=== PATIENT | female | born 1945 | race Caucasian/White ===

== ENCOUNTER 2018-06-28 09:02 | Day surgery (SDC) | payer MEDICARE, BC ==
[~2018-06-28] VITALS: Ht 162.6 cm; Wt 70.9 kg
[~2018-06-28 09:02] MED LIST: Abilify5 MG PO; CALCA400CH; CHOL10002 PO; CYAN500; DOXA1 PO; ESOM20 PO; HORIZANT600 MG PO; Ipratropium Bro15 ML; LEVO-T75 MCG PO; Mirapex0.25 MG; NEBI10 PO; Nitrostat0.4 MG; PRENATAL VITAM1 EAC2 PO; PROZAC20 MG PO; QSYMIA 15 MG-91 EACH PO
== END 2018-06-28 11:41 | disposition home or self-care (01) ==
LOC: ORSCSDS 09:02
PROVIDERS: Internal Medicine Gastroenterology
PROC: 0DJD8ZZ Inspection of Lower Intestinal Tract, Via Natural or Artificial Opening Endoscopic (ICD-10-PCS; principal; 2018-06-28 10:30)
DX: Z12.11 Encounter for screening for malignant neoplasm of colon (principal); Z86.010 Personal history of colon polyps; Z83.71 Family history of colonic polyps; Z98.84 Bariatric surgery status; I10 Essential (primary) hypertension; G47.30 Sleep apnea, unspecified; Z79.899 Other long term (current) drug therapy
CPT/HCPCS: J7120

== ENCOUNTER 2019-02-15 20:06 | Inpatient (IN) | payer MEDICARE, BC ==
[~2019-02-15] VITALS: Ht 160 cm; Wt 77.1 kg
[~2019-02-15 20:06] MED LIST changes: -Mirapex0.25 MG; +Mirapex0.25 MG PO
[2019-02-15 21:02] LABS: BASOPHILS ABSOLUTE AUTO 0.15 K/mm3 (0.00-0.23); BASOPHILS PERCENT AUTO 3 % (0-2); EOSINOPHILS ABSOLUTE AUTO 0.14 K/mm3 (0.00-0.68); EOSINOPHILS PERCENT AUTO 3 % (0-6); Hematocrit 39.1 % (33.0-51.0); Hemoglobin 12.2 g/dL (11.5-16.0); IMMATURE GRAN ABSOLUTE AUTO 0.02 K/mm3 (0.00-0.10); IMMATURE GRAN PERCENT AUTO 0 % (0-1); LYMPHOCYTES ABSOLUTE AUTO 1.05 K/mm3 (0.84-5.20); LYMPHOCYTES PERCENT AUTO 19 % (21-46); MONOCYTES ABSOLUTE AUTO 0.56 K/mm3 (0.16-1.47); MONOCYTES PERCENT AUTO 10 % (4-13); Mean Corpuscular HGB 27.7 pg (26.0-34.0); Mean Corpuscular HGB Conc 31.2 g/dL (31.5-36.5); Mean Corpuscular Volume 89 fL (80-100); Mean Platelet Volume 9.5 fL (9.1-12.4); NEUTROPHILS PERCENT AUTO 65 % (41-73); Platelet Count 258 K/mm3 (150-400); RDW Coefficient Variation 20.5 % (11.7-14.2); RDW Standard Deviation 66.2 fL (35.1-46.3); Red Blood Cell Count 4.41 M/mm3 (3.80-5.20); White Blood Cell Count 5.42 K/mm3 (4.00-11.30)
[2019-02-15 21:16] LABS: D-Dimer, Quantitative 2.27 mg/L FEU (0.00-0.52); International Normalized Ratio 0.89; Prothrombin Time Results 9.5 Sec (9.7-11.5)
[2019-02-15 21:25] LABS: Troponin I 0.065 ng/mL (0.000-0.040)
[2019-02-15 21:27] LABS: Alanine Aminotransfer (ALT/SGP 106 U/L (12-78); Albumin, Blood 3.4 g/dL (3.4-5.0); Albumin/Globulin Ratio 1.2 (0.8-1.8); Alk Phos 139 U/L (50-136); Anion Gap 10 mmol/L (6-16); Aspartate Aminotrans (AST/SGOT 189 U/L (12-37); Bilirubin, Total 0.4 mg/dL (0.1-1.0); Blood Urea Nitrogen 5 mg/dL (8-24); Bun/Creatinine Ratio 8.1 (12.0-20.0); CO2, Blood 23 mmol/L (21-32); Calcium, Blood 8.6 mg/dL (8.5-10.1); Chloride, Blood 105 mmol/L (98-108); Creatinine, Blood 0.62 mg/dL (0.40-1.00); Globulin, Blood 2.9 g/dL (2.2-4.0); Glomerular Filtration Rate >60 (60-); Glucose, Blood 74 mg/dL (70-99); Potassium, Blood 4.1 mmol/L (3.5-5.5); Sodium, Blood 138 mmol/L (136-145); Total Protein, Blood 6.3 g/dL (6.4-8.2)
--- NOTE | 2019-02-16 00:05 | NUR ---
per results from Dr. Osorio (night radiology service) CT pulmonary scan showed small bilateral pulmonary emboli. night hospitalist informed. awaiting orders
[2019-02-16 04:35] LABS: Hemoglobin 11.2 g/dL (11.5-16.0); Mean Corpuscular HGB 28.1 pg (26.0-34.0); Mean Corpuscular HGB Conc 31.1 g/dL (31.5-36.5); Mean Corpuscular Volume 91 fL (80-100); Mean Platelet Volume 9.4 fL (9.1-12.4); Platelet Count 226 K/mm3 (150-400); RDW Coefficient Variation 20.7 % (11.7-14.2); RDW Standard Deviation 68.7 fL (35.1-46.3); Red Blood Cell Count 3.98 M/mm3 (3.80-5.20); White Blood Cell Count 5.61 K/mm3 (4.00-11.30)
[2019-02-16 04:52] LABS: Alanine Aminotransfer (ALT/SGP 85 U/L (12-78); Albumin/Globulin Ratio 1.1 (0.8-1.8); Alk Phos 132 U/L (50-136); Anion Gap 9 mmol/L (6-16); Aspartate Aminotrans (AST/SGOT 141 U/L (12-37); Bilirubin, Total 0.5 mg/dL (0.1-1.0); Blood Urea Nitrogen 8 mg/dL (8-24); Bun/Creatinine Ratio 11.9 (12.0-20.0); CO2, Blood 23 mmol/L (21-32); Chloride, Blood 107 mmol/L (98-108); Creatinine, Blood 0.68 mg/dL (0.40-1.00); Globulin, Blood 2.7 g/dL (2.2-4.0); Glomerular Filtration Rate >60 (60-); Glucose, Blood 80 mg/dL (70-99); Potassium, Blood 4.1 mmol/L (3.5-5.5); Sodium, Blood 139 mmol/L (136-145); Total Protein, Blood 5.7 g/dL (6.4-8.2)
[2019-02-16 04:57] LABS: Free Thyroxine 0.7 ng/dL (0.70-1.60); Troponin I 0.053 ng/mL (0.000-0.040)
[2019-02-16 05:00] LABS: Thyroid Stimulating Hormone 9.6 uIU/mL (0.360-4.800)
--- NOTE | 2019-02-16 12:44 | NUR ---
Upon receiving a spiritual care referrral, I visited patient. Patient is very tearful as she speaks of her worries about what will happen to her now if the doctors can't resolve the cause of her dissiness and instability. Patient doesn't want to leave her home and her dog but also is afraid that she will keep falling. Patient is also tearful about the loss of her less than 2 years ago. I listen empathically and provide grief support and pastoral high school counselor. Dr. Sadler comes in patient's room at this time and so I cut the visit short. I will continue to remain available to patient.
--- NOTE | 2019-02-16 13:31 | NUR ---
Advance Directive Education Visit conducted. Upon receiving a referral for advance directive education, I visited patient. Patient states that she would like to know about this because the last document she filed was a polst in 1992. We agreed it is time to relook at what her wishes are and who will be her health care field sales representative. I went through the sections of the advance directive booklet and explained about how as we age our medical wisshes may change. Patient agreed and stated that she would read through the materials and file the forms when it is completed.
[2019-02-16 14:10] LABS: Troponin I 0.044 ng/mL (0.000-0.040)
--- NOTE | 2019-02-16 19:55 | NUR ---
SHIFT SUMMARY: NO ACUTE CHANGES TO REPORT THIS SHIFT. PT A&O; ANXIETY R/T DIAGNOSIS & PLAN AT DISCHARGE; COOPERATIVE WITH CARE. TELE IN PLACE; SR @ 81 PER SENIOR HRIS ANALYST DURING MORNING ASSESSMENT. CIWA ORDERED; STABLE WITHDRAWAL; MASON & TREMORS NOTED. ELEVATED TROPONINS, TRENDING DOWN. REPROT GIVEN TO ONCOMING RN.
[2019-02-17 04:41] LABS: BASOPHILS ABSOLUTE AUTO 0.11 K/mm3 (0.00-0.23); BASOPHILS PERCENT AUTO 3 % (0-2); EOSINOPHILS ABSOLUTE AUTO 0.19 K/mm3 (0.00-0.68); EOSINOPHILS PERCENT AUTO 4 % (0-6); Hematocrit 35.3 % (33.0-51.0); Hemoglobin 11.1 g/dL (11.5-16.0); IMMATURE GRAN ABSOLUTE AUTO 0.02 K/mm3 (0.00-0.10); IMMATURE GRAN PERCENT AUTO 1 % (0-1); LYMPHOCYTES ABSOLUTE AUTO 1.27 K/mm3 (0.84-5.20); LYMPHOCYTES PERCENT AUTO 29 % (21-46); MONOCYTES ABSOLUTE AUTO 0.54 K/mm3 (0.16-1.47); MONOCYTES PERCENT AUTO 12 % (4-13); Mean Corpuscular HGB 29.1 pg (26.0-34.0); Mean Corpuscular HGB Conc 31.4 g/dL (31.5-36.5); Mean Corpuscular Volume 92 fL (80-100); Mean Platelet Volume 9.8 fL (9.1-12.4); NEUTROPHILS ABSOLUTE AUTO 2.25 K/mm3 (1.96-9.15); NEUTROPHILS PERCENT AUTO 51 % (41-73); Platelet Count 230 K/mm3 (150-400); RDW Coefficient Variation 20.7 % (11.7-14.2); RDW Standard Deviation 69.8 fL (35.1-46.3); Red Blood Cell Count 3.82 M/mm3 (3.80-5.20); White Blood Cell Count 4.38 K/mm3 (4.00-11.30)
--- NOTE | 2019-02-17 04:59 | NUR ---
SHIFT SUMMARY PT HAS HAD A FEW EPISODES OF SUDDEN VOMITING FOLLOWING EATING. PT HAD NO OTHER ISSUES NOTED. PT HAS NOT HAD ANY INCREASE IN WITHDRAWL SX'S. PT HAS SLIGHT TREMORS NOTED WITH SOME ANXIETY. PT IS CONCERNED TO WHAT HER NEW LIVING SITUATION WILL BE. A OT DOSE OF BENEDRYL WAS ORDERED AND HOSPITALIST REQUEST DAY HOSPITALIST MAKE DECISION FOR CONTINUED USE OF BENERYL FOR SLEEP AID. PT HAS SLEPT WELL SINCE BENEDRYL. PT CURRENTLY SLEEPING IN NO DISTRESS. CALL LIGHT IN REACH.
[2019-02-17 05:08] LABS: Alanine Aminotransfer (ALT/SGP 72 U/L (12-78); Albumin, Blood 3.1 g/dL (3.4-5.0); Albumin/Globulin Ratio 1.1 (0.8-1.8); Alk Phos 122 U/L (50-136); Anion Gap 6 mmol/L (6-16); Aspartate Aminotrans (AST/SGOT 102 U/L (12-37); Bilirubin, Total 0.7 mg/dL (0.1-1.0); Blood Urea Nitrogen 10 mg/dL (8-24); Bun/Creatinine Ratio 13.8 (12.0-20.0); CO2, Blood 29 mmol/L (21-32); Calcium, Blood 8.7 mg/dL (8.5-10.1); Chloride, Blood 103 mmol/L (98-108); Creatinine, Blood 0.73 mg/dL (0.40-1.00); Globulin, Blood 2.8 g/dL (2.2-4.0); Glomerular Filtration Rate >60 (60-); Glucose, Blood 80 mg/dL (70-99); Potassium, Blood 3.8 mmol/L (3.5-5.5); Sodium, Blood 138 mmol/L (136-145); Total Protein, Blood 5.9 g/dL (6.4-8.2)
--- NOTE | 2019-02-17 17:13 | NUR ---
SHIFT SUMMARY PT AWAKE DURING SHIFT REPORT, PLEASANT AND CO-OP. ADMITTED FOR BL PE'S. NO C/O SOB. ABLE TO AMBULATE IN HALLS WITH P/T. BIOX DURING AMBULAITON AT 100%. BIOX WHILE AT REST 97%. HOME O2 EVAL NOT NEEDED, PT DOES NOT DESAT WITH ACTIVITY. PT HAS BEEN ABLE TO GET UP TO CHAIR AND TO BTHRM INDEPENDENTLY USING FWW. PT SITTING UP IN BED HOLDING AN EMESIS BAG, IMMEDIATELY AFTER EATING BREAKFAST. PT REPORTED THAT SHE "ATE SLOWLY AND DELIBERATELY" AND THOUGHT SHE WAS DOING OK AND SUDDENLY GOT SICK. PT REPORTED THAT THIS HAS BEEN GOING ON FOR A WHILE NOW. ZOFRAN GIVEN PER EMAR. DR LINDQUIST NOTIFIED OF PT'S REPORT. NEW ORDERS PLACED. DR SNIDER CONSULTED PER ORDERS. NEW ORDERS PLACED, WELL DR SNIDER HERE TO SEE PT. RADIOLOGY CALLED TO REPORT PT TO HAVE BARIUM SWALLOW IN AM AND TO BE NPO AT BREAKFAST. PT REPORTED THAT SHE DID NOT EAT MUCH FOR LUNCH SHE WAS AFRAID OF GETTING SICK AGAIN. REGLAN PO GIVEN BEFORE DINNER TONIGHT. PT TOLERATING BLAND DIET TO PRESENT. CALL LT IN REACH. NO FURTHER NEEDS AT THIS TIME.
--- NOTE | 2019-02-18 04:37 | NUR ---
SHIFT SUMMARY PT HAD SOME N/V NOTED WHEN SHE ATE A SANDWICH. PT REPORTS NAUSEA RESOLVED AFTER VOMITING. PT STILL IS ANXIOUS ABOUT [facility] SITUATION. PT REPORTS RESTLESS LEGS THAT ARE NOT ALLOWING HER TO SLEEP. PT WOULD LIKE HER ABILIFY, PROZAC AND MIRAPEX BE ADDED TO HER EMAR. PT CIWAS INCREASED SLIGHTLY AND WAS TX PER EMAR. PT IS MORE UNSTEADY ON HER FEET THIS SHIFT. PT BED ALARM IS ON AND PT EDUCATED ON USE OF CALL LIGHT FOR ASSISTANCE. PT CURRENTLY SLEEPING AND BREATHING EASY. CALL LIGHT IN REACH.
[2019-02-18 04:51] LABS: BASOPHILS ABSOLUTE AUTO 0.08 K/mm3 (0.00-0.23); BASOPHILS PERCENT AUTO 2 % (0-2); EOSINOPHILS ABSOLUTE AUTO 0.24 K/mm3 (0.00-0.68); EOSINOPHILS PERCENT AUTO 5 % (0-6); Hematocrit 36.8 % (33.0-51.0); Hemoglobin 11.4 g/dL (11.5-16.0); IMMATURE GRAN ABSOLUTE AUTO 0.01 K/mm3 (0.00-0.10); IMMATURE GRAN PERCENT AUTO 0 % (0-1); LYMPHOCYTES ABSOLUTE AUTO 1.47 K/mm3 (0.84-5.20); LYMPHOCYTES PERCENT AUTO 31 % (21-46); MONOCYTES ABSOLUTE AUTO 0.64 K/mm3 (0.16-1.47); MONOCYTES PERCENT AUTO 13 % (4-13); Mean Corpuscular HGB 28.5 pg (26.0-34.0); Mean Corpuscular Volume 92 fL (80-100); NEUTROPHILS ABSOLUTE AUTO 2.32 K/mm3 (1.96-9.15); NEUTROPHILS PERCENT AUTO 49 % (41-73); Platelet Count 216 K/mm3 (150-400); White Blood Cell Count 4.76 K/mm3 (4.00-11.30)
[2019-02-18 05:14] LABS: Alanine Aminotransfer (ALT/SGP 64 U/L (12-78); Albumin/Globulin Ratio 1.2 (0.8-1.8); Alk Phos 107 U/L (50-136); Anion Gap 6 mmol/L (6-16); Aspartate Aminotrans (AST/SGOT 77 U/L (12-37); Bilirubin, Total 0.5 mg/dL (0.1-1.0); Blood Urea Nitrogen 7 mg/dL (8-24); CO2, Blood 29 mmol/L (21-32); Calcium, Blood 8.6 mg/dL (8.5-10.1); Chloride, Blood 105 mmol/L (98-108); Creatinine, Blood 0.78 mg/dL (0.40-1.00); Globulin, Blood 2.5 g/dL (2.2-4.0); Glomerular Filtration Rate >60 (60-); Glucose, Blood 108 mg/dL (70-99); Potassium, Blood 3.5 mmol/L (3.5-5.5); Sodium, Blood 140 mmol/L (136-145); Total Protein, Blood 5.5 g/dL (6.4-8.2)
--- NOTE | 2019-02-18 19:15 | NUR ---
SHIFT SUMMARY PT AWAKE DURING SHIFT REPORT, WAITING FOR BARIUM SWALLOW. NPO AT BREAKFAST UNTIL FINISHED WITH TEST. DR SNIDER IN TO SEE PT LATER, AFTER RESULTS COMPLETE. PT INFORMED OF RESULTS AND INSTRUCTED ON DIET MODIFICATION. PT TOLERATING FL DIET. PT UP TO SHOWER AND ALSO UP AMBULATING IN HALLS TODAY USING FWW AND DOING WELL. PT APPEARS TO BE IMPROVING. DID REPORT THAT IT TAKES HER A FEW MINUTES TO RECOVER AFTER EXERTION THOUGH, WHICH SHE SAID SHE IS NOT USED TO. NO NOTED TREMORS TODAY. REPORTS SHE WAS ABLE TO SLEEP LAST NIGHT AND DID TAKE A NAP BETWEEN MULTIPLE VISITORS TODAY. NO FURTHER CHANGES TO REPORT. CALL LT IN REACH.
[2019-02-19 04:42] LABS: BASOPHILS ABSOLUTE AUTO 0.11 K/mm3 (0.00-0.23); BASOPHILS PERCENT AUTO 3 % (0-2); EOSINOPHILS ABSOLUTE AUTO 0.26 K/mm3 (0.00-0.68); EOSINOPHILS PERCENT AUTO 6 % (0-6); Hemoglobin 10.7 g/dL (11.5-16.0); IMMATURE GRAN ABSOLUTE AUTO 0.02 K/mm3 (0.00-0.10); IMMATURE GRAN PERCENT AUTO 1 % (0-1); LYMPHOCYTES PERCENT AUTO 32 % (21-46); MONOCYTES ABSOLUTE AUTO 0.58 K/mm3 (0.16-1.47); MONOCYTES PERCENT AUTO 13 % (4-13); Mean Corpuscular HGB 28.6 pg (26.0-34.0); Mean Corpuscular HGB Conc 30.6 g/dL (31.5-36.5); Mean Corpuscular Volume 94 fL (80-100); NEUTROPHILS ABSOLUTE AUTO 2.06 K/mm3 (1.96-9.15); NEUTROPHILS PERCENT AUTO 46 % (41-73); Platelet Count 198 K/mm3 (150-400); RDW Coefficient Variation 20.8 % (11.7-14.2); RDW Standard Deviation 71.5 fL (35.1-46.3); Red Blood Cell Count 3.74 M/mm3 (3.80-5.20); White Blood Cell Count 4.43 K/mm3 (4.00-11.30)
[2019-02-19 05:04] LABS: Alanine Aminotransfer (ALT/SGP 55 U/L (12-78); Albumin, Blood 2.8 g/dL (3.4-5.0); Albumin/Globulin Ratio 1.2 (0.8-1.8); Alk Phos 103 U/L (50-136); Anion Gap 6 mmol/L (6-16); Aspartate Aminotrans (AST/SGOT 56 U/L (12-37); Bilirubin, Total 0.4 mg/dL (0.1-1.0); Blood Urea Nitrogen 11 mg/dL (8-24); Bun/Creatinine Ratio 12.9 (12.0-20.0); CO2, Blood 28 mmol/L (21-32); Calcium, Blood 8.1 mg/dL (8.5-10.1); Chloride, Blood 106 mmol/L (98-108); Creatinine, Blood 0.86 mg/dL (0.40-1.00); Globulin, Blood 2.3 g/dL (2.2-4.0); Glomerular Filtration Rate >60 (60-); Glucose, Blood 93 mg/dL (70-99); Potassium, Blood 3.4 mmol/L (3.5-5.5); Sodium, Blood 140 mmol/L (136-145); Total Protein, Blood 5.1 g/dL (6.4-8.2)
--- NOTE | 2019-02-19 05:19 | NUR ---
SHIFT SUMMARY PTHAD NO ISSUES OR COMPLAINTS. PT HAD A BETTER NIGHT WITH NO COMPLAINTS OF RESTLESS LEGS. PT DID HAVE SOME DIFFICULTY FALLING ASLEEP DESPITE ORDERED BENEDRYL. PT DID REPORT HAVING SLEPT VERY WELL DURING THE DAY SHIFT. PT CURRENTLY AWAKE IN NO DISTRESS. CALL LIGHT IN REACH.
[2019-02-19] MEDS ORDERED: Anti-Diarrheal2 MG PO (12:18)
[2019-02-19] MEDS ORDERED: METO10 PO (12:21)
[2019-02-19] MEDS ORDERED: Thiamine HCl100 MG PO (12:21)
[2019-02-19] MEDS ORDERED: XARELTO15 MG PO (12:21)
--- NOTE | 2019-02-19 16:47 | NUR ---
PT DISCHARGED TO HOME. PT VERBALIZED UNDERSTANDING OF DISCHARGE MEDICATIONS AND EDUCATOIN. IV REMOVED PRIOR TO PT LEAVING. PT AMBULATING IN THE ROOM WITHOUT ASSISTANCE PRIOR TO DISCHARGE. PT BELONGINGS WITH PT UPON LEAVING. PT TO VEHICLE BY WHEELCHAIR. PT RELATIVE PROVIDING TRANSPORTATION HOME.
== END 2019-02-19 16:28 | disposition home or self-care (01) | DRG 176 ==
LOC: ER 20:06 → MEDS 20:07 → ENPENDDIS 02-19 11:30 → MEDS 02-19 16:28
PROVIDERS: Emergency Medicine; Family Medicine; ADMIT Internal Medicine
DX: I26.99 Other pulmonary embolism without acute cor pulmonale (principal); F10.10 Alcohol abuse, uncomplicated; R13.10 Dysphagia, unspecified; K22.2 Esophageal obstruction; R11.2 Nausea with vomiting, unspecified; Z98.84 Bariatric surgery status; Z91.14 Patient's other noncompliance with medication regimen; J45.909 Unspecified asthma, uncomplicated; I10 Essential (primary) hypertension; F41.9 Anxiety disorder, unspecified; F32.9 Major depressive disorder, single episode, unspecified; E03.9 Hypothyroidism, unspecified; F17.210 Nicotine dependence, cigarettes, uncomplicated; G47.33 Obstructive sleep apnea (adult) (pediatric)
CPT/HCPCS: 36415; 71046; 71260; 74220; 80053; 81240; 81241; 82550; 83880; 84439; 84443; 84484; 85025; 85027; 85300; 85303; 85306; 85379; 85610; 93005; 93010; 93306; 93970; 96361; 96374-59; 96375-59; 96376; 97116; 97161; 97530; 99285-25; C9113; G0378; J2060; J2405; J7030; Q0163; Q9967

== ENCOUNTER 2019-05-18 15:41 | Emergency (ER) | payer MEDICARE, BC ==
[~2019-05-18] VITALS: Ht 165.1 cm; Wt 77.1 kg
[~2019-05-18 15:41] MED LIST changes: +Anti-Diarrheal2 MG PO; +METO10 PO; +Thiamine HCl100 MG PO; +XARELTO15 MG PO
[2019-05-18 16:18] LABS: BASOPHILS ABSOLUTE AUTO 0.09 K/mm3 (0.00-0.23); BASOPHILS PERCENT AUTO 1 % (0-2); EOSINOPHILS ABSOLUTE AUTO 0.19 K/mm3 (0.00-0.68); EOSINOPHILS PERCENT AUTO 3 % (0-6); Hematocrit 38.8 % (33.0-51.0); IMMATURE GRAN ABSOLUTE AUTO 0.02 K/mm3 (0.00-0.10); IMMATURE GRAN PERCENT AUTO 0 % (0-1); LYMPHOCYTES ABSOLUTE AUTO 1.24 K/mm3 (0.84-5.20); LYMPHOCYTES PERCENT AUTO 17 % (21-46); MONOCYTES ABSOLUTE AUTO 0.47 K/mm3 (0.16-1.47); MONOCYTES PERCENT AUTO 6 % (4-13); Mean Corpuscular HGB 26.7 pg (26.0-34.0); Mean Corpuscular HGB Conc 30.9 g/dL (31.5-36.5); Mean Corpuscular Volume 86 fL (80-100); Mean Platelet Volume 8.8 fL (9.1-12.4); NEUTROPHILS ABSOLUTE AUTO 5.38 K/mm3 (1.96-9.15); NEUTROPHILS PERCENT AUTO 73 % (41-73); Platelet Count 338 K/mm3 (150-400); RDW Coefficient Variation 21.4 % (11.7-14.2); RDW Standard Deviation 64.2 fL (35.1-46.3); White Blood Cell Count 7.39 K/mm3 (4.00-11.30)
[2019-05-18 16:37] LABS: International Normalized Ratio 0.92; Prothrombin Time Results 9.8 Sec (9.7-11.5)
[2019-05-18 16:42] LABS: Alanine Aminotransfer (ALT/SGP 15 U/L (12-78); Albumin, Blood 3.1 g/dL (3.4-5.0); Alk Phos 160 U/L (50-136); Anion Gap 11 mmol/L (6-16); Aspartate Aminotrans (AST/SGOT 20 U/L (12-37); Bilirubin, Total 0.4 mg/dL (0.1-1.0); Blood Urea Nitrogen 6 mg/dL (8-24); Bun/Creatinine Ratio 9.1 (12.0-20.0); CO2, Blood 22 mmol/L (21-32); Calcium, Blood 8.2 mg/dL (8.5-10.1); Chloride, Blood 106 mmol/L (98-108); Creatinine, Blood 0.66 mg/dL (0.40-1.00); Ethanol (Alcohol), Blood, Med 259 mg/dL; Globulin, Blood 3.2 g/dL (2.2-4.0); Glomerular Filtration Rate >60 (60-); Glucose, Blood 92 mg/dL (70-99); Potassium, Blood 4.1 mmol/L (3.5-5.5); Sodium, Blood 139 mmol/L (136-145); Total Protein, Blood 6.3 g/dL (6.4-8.2); Troponin I <0.015 ng/mL (0.000-0.040)
== END 2019-05-18 17:46 | disposition home or self-care (01) ==
LOC: ER 15:41
PROVIDERS: Emergency Medicine
DX: R07.9 Chest pain, unspecified (principal); F10.129 Alcohol abuse with intoxication, unspecified; I10 Essential (primary) hypertension; G47.30 Sleep apnea, unspecified; J45.909 Unspecified asthma, uncomplicated; E03.9 Hypothyroidism, unspecified; Z91.14 Patient's other noncompliance with medication regimen; Y90.8 Blood alcohol level of 240 mg/100 ml or more; Z79.899 Other long term (current) drug therapy
CPT/HCPCS: 71260; 80053; 84484; 85025; 85610; 85730; 93005; 93010; 99285-25; G0480; Q9967

== ENCOUNTER 2019-05-28 16:05 | Emergency (ER) | payer MEDICARE, BC ==
[~2019-05-28] VITALS: Ht 165.1 cm; Wt 77.1 kg
[2019-05-28 16:27] LABS: BASOPHILS ABSOLUTE AUTO 0.11 K/mm3 (0.00-0.23); BASOPHILS PERCENT AUTO 2 % (0-2); EOSINOPHILS ABSOLUTE AUTO 0.08 K/mm3 (0.00-0.68); EOSINOPHILS PERCENT AUTO 1 % (0-6); Hematocrit 36.4 % (33.0-51.0); Hemoglobin 10.8 g/dL (11.5-16.0); IMMATURE GRAN ABSOLUTE AUTO 0.03 K/mm3 (0.00-0.10); IMMATURE GRAN PERCENT AUTO 1 % (0-1); LYMPHOCYTES ABSOLUTE AUTO 0.87 K/mm3 (0.84-5.20); LYMPHOCYTES PERCENT AUTO 16 % (21-46); MONOCYTES ABSOLUTE AUTO 0.62 K/mm3 (0.16-1.47); MONOCYTES PERCENT AUTO 11 % (4-13); Mean Corpuscular HGB 26.7 pg (26.0-34.0); Mean Corpuscular HGB Conc 29.7 g/dL (31.5-36.5); NEUTROPHILS ABSOLUTE AUTO 3.83 K/mm3 (1.96-9.15); NEUTROPHILS PERCENT AUTO 69 % (41-73); Platelet Count 394 K/mm3 (150-400); RDW Coefficient Variation 21.6 % (11.7-14.2); RDW Standard Deviation 70.4 fL (35.1-46.3); Red Blood Cell Count 4.05 M/mm3 (3.80-5.20); White Blood Cell Count 5.54 K/mm3 (4.00-11.30)
[2019-05-28 16:28] LABS: Mean Corpuscular Volume 90 fL (80-100)
[2019-05-28 16:49] LABS: Alanine Aminotransfer (ALT/SGP 15 U/L (12-78); Albumin, Blood 3.2 g/dL (3.4-5.0); Alk Phos 138 U/L (50-136); Anion Gap 10 mmol/L (6-16); Aspartate Aminotrans (AST/SGOT 20 U/L (12-37); Bilirubin, Total 0.3 mg/dL (0.1-1.0); Blood Urea Nitrogen 9 mg/dL (8-24); Bun/Creatinine Ratio 11.1 (12.0-20.0); CO2, Blood 21 mmol/L (21-32); Calcium, Blood 8.3 mg/dL (8.5-10.1); Chloride, Blood 109 mmol/L (98-108); Creatinine, Blood 0.81 mg/dL (0.40-1.00); Globulin, Blood 3.2 g/dL (2.2-4.0); Glomerular Filtration Rate >60 (60-); Glucose, Blood 70 mg/dL (70-99); Potassium, Blood 3.7 mmol/L (3.5-5.5); Sodium, Blood 140 mmol/L (136-145); Total Protein, Blood 6.4 g/dL (6.4-8.2); Troponin I <0.015 ng/mL (0.000-0.040)
[2019-05-28] MEDS ORDERED: ALPR.25 PO (17:19)
== END 2019-05-28 17:37 | disposition home or self-care (01) ==
LOC: ER 16:05
PROVIDERS: Emergency Medicine
DX: F41.9 Anxiety disorder, unspecified (principal); J45.909 Unspecified asthma, uncomplicated; I10 Essential (primary) hypertension; E03.9 Hypothyroidism, unspecified; G47.30 Sleep apnea, unspecified
CPT/HCPCS: 71046; 80053; 84484; 85025; 93005; 93010; 99284-25

== ENCOUNTER 2019-08-11 20:38 | Emergency (ER) | payer MEDICARE, BC ==
[~2019-08-11] VITALS: Ht 167.6 cm; Wt 79.4 kg
[~2019-08-11 20:38] MED LIST changes: +ALPR.25 PO
== END 2019-08-12 | disposition home or self-care (01) ==
LOC: ER 20:38
DX: F41.9 Anxiety disorder, unspecified (principal); I10 Essential (primary) hypertension; J45.909 Unspecified asthma, uncomplicated; E03.9 Hypothyroidism, unspecified; F32.9 Major depressive disorder, single episode, unspecified; Z88.2 Allergy status to sulfonamides; Z88.8 Allergy status to other drugs, medicaments and biological substances; Z88.5 Allergy status to narcotic agent; Z88.6 Allergy status to analgesic agent; Z79.899 Other long term (current) drug therapy; Z86.718 Personal history of other venous thrombosis and embolism
CPT/HCPCS: 71045; 93005; 93010; 99284-25

== ENCOUNTER 2019-08-12 22:22 | Emergency (ER) | payer MEDICARE, BC ==
[~2019-08-12] VITALS: Ht 167.6 cm; Wt 79.4 kg
[2019-08-12 23:25] LABS: BASOPHILS ABSOLUTE AUTO 0.17 K/mm3 (0.00-0.23); BASOPHILS PERCENT AUTO 2 % (0-2); EOSINOPHILS ABSOLUTE AUTO 0.05 K/mm3 (0.00-0.68); EOSINOPHILS PERCENT AUTO 1 % (0-6); Hematocrit 32.2 % (33.0-51.0); Hemoglobin 10.1 g/dL (11.5-16.0); IMMATURE GRAN ABSOLUTE AUTO 0.02 K/mm3 (0.00-0.10); IMMATURE GRAN PERCENT AUTO 0 % (0-1); LYMPHOCYTES ABSOLUTE AUTO 1.47 K/mm3 (0.84-5.20); LYMPHOCYTES PERCENT AUTO 19 % (21-46); MONOCYTES ABSOLUTE AUTO 0.58 K/mm3 (0.16-1.47); MONOCYTES PERCENT AUTO 7 % (4-13); Mean Corpuscular HGB 26.5 pg (26.0-34.0); Mean Corpuscular HGB Conc 31.4 g/dL (31.5-36.5); Mean Corpuscular Volume 85 fL (80-100); Mean Platelet Volume 8.8 fL (9.1-12.4); NEUTROPHILS ABSOLUTE AUTO 5.58 K/mm3 (1.96-9.15); NEUTROPHILS PERCENT AUTO 71 % (41-73); Platelet Count 396 K/mm3 (150-400); RDW Coefficient Variation 21.6 % (11.7-14.2); RDW Standard Deviation 65.6 fL (35.1-46.3); Red Blood Cell Count 3.81 M/mm3 (3.80-5.20); White Blood Cell Count 7.87 K/mm3 (4.00-11.30)
[2019-08-12 23:45] LABS: Alanine Aminotransfer (ALT/SGP 72 U/L (12-78); Albumin, Blood 3.2 g/dL (3.4-5.0); Albumin/Globulin Ratio 1.1 (0.8-1.8); Alk Phos 142 U/L (50-136); Anion Gap 16 mmol/L (6-16); Aspartate Aminotrans (AST/SGOT 97 U/L (12-37); Bilirubin, Total 0.4 mg/dL (0.1-1.0); Blood Urea Nitrogen 7 mg/dL (8-24); Bun/Creatinine Ratio 10.6 (12.0-20.0); CO2, Blood 17 mmol/L (21-32); Calcium, Blood 8.2 mg/dL (8.5-10.1); Chloride, Blood 105 mmol/L (98-108); Creatinine, Blood 0.66 mg/dL (0.40-1.00); Glomerular Filtration Rate >60 (60-); Glucose, Blood 79 mg/dL (70-99); Sodium, Blood 138 mmol/L (136-145); Total Protein, Blood 6.2 g/dL (6.4-8.2); Troponin I 0.018 ng/mL (0.000-0.040)
== END 2019-08-13 00:45 | disposition home or self-care (01) ==
LOC: ER 22:22
PROVIDERS: Emergency Medicine
DX: S22.41XA Multiple fractures of ribs, right side, initial encounter for closed fracture (principal); F41.0 Panic disorder [episodic paroxysmal anxiety]; J45.909 Unspecified asthma, uncomplicated; I10 Essential (primary) hypertension; E03.9 Hypothyroidism, unspecified; F32.9 Major depressive disorder, single episode, unspecified; Z79.899 Other long term (current) drug therapy; Z88.2 Allergy status to sulfonamides; Z88.5 Allergy status to narcotic agent; Z88.8 Allergy status to other drugs, medicaments and biological substances; W19.XXXA Unspecified fall, initial encounter
CPT/HCPCS: 36415; 71260; 80053; 84484; 85025; 93005; 93010; 96374-59; 99284-25; J2060; Q9967

== ENCOUNTER 2019-08-14 11:18 | Emergency (ER) | payer MEDICARE, BC, OTHER ==
[~2019-08-14] VITALS: Ht 167.6 cm; Wt 79.4 kg
== END 2019-08-14 14:00 | disposition home or self-care (01) ==
LOC: ER 11:18
DX: F41.9 Anxiety disorder, unspecified (principal); J45.909 Unspecified asthma, uncomplicated; I10 Essential (primary) hypertension; E03.9 Hypothyroidism, unspecified; G47.30 Sleep apnea, unspecified; F32.9 Major depressive disorder, single episode, unspecified; Z88.2 Allergy status to sulfonamides; Z88.6 Allergy status to analgesic agent; Z88.5 Allergy status to narcotic agent; Z88.8 Allergy status to other drugs, medicaments and biological substances; Z79.899 Other long term (current) drug therapy
CPT/HCPCS: 96374; 96375; 99283-25; J1200; J2405

== ENCOUNTER 2019-08-16 11:24 | Emergency (ER) | payer MEDICARE, BC ==
[~2019-08-16] VITALS: Ht 167.6 cm; Wt 79.4 kg
[2019-08-16] MEDS ORDERED: LIDO700A20 TOP (13:10)
[2019-08-16] MEDS ORDERED: Norco 5-325 Ta1 EACH PO (13:10)
== END 2019-08-16 13:52 | disposition home or self-care (01) ==
LOC: ER 11:24
DX: S22.41XD Multiple fractures of ribs, right side, subsequent encounter for fracture with routine healing (principal); I10 Essential (primary) hypertension; E03.9 Hypothyroidism, unspecified; F41.9 Anxiety disorder, unspecified; F32.9 Major depressive disorder, single episode, unspecified; J45.909 Unspecified asthma, uncomplicated; G47.30 Sleep apnea, unspecified; Z88.2 Allergy status to sulfonamides; Z88.6 Allergy status to analgesic agent; Z88.5 Allergy status to narcotic agent; Z88.8 Allergy status to other drugs, medicaments and biological substances; Z79.899 Other long term (current) drug therapy; W18.1 Fall from or off toilet
CPT/HCPCS: 99283; A9270-GY

== ENCOUNTER 2019-12-26 21:59 | Emergency (ER) | payer MEDICARE, BC, OTHER ==
[~2019-12-26] VITALS: Ht 167.6 cm; Wt 77.1 kg
[~2019-12-26 21:59] MED LIST changes: +LIDO700A20 TOP; +Norco 5-325 Ta1 EACH PO
[2019-12-26 22:19] LABS: BASOPHILS ABSOLUTE AUTO 0.19 K/mm3 (0.00-0.23); BASOPHILS PERCENT AUTO 2 % (0-2); EOSINOPHILS ABSOLUTE AUTO 0.18 K/mm3 (0.00-0.68); EOSINOPHILS PERCENT AUTO 2 % (0-6); Hematocrit 31.9 % (33.0-51.0); IMMATURE GRAN ABSOLUTE AUTO 0.02 K/mm3 (0.00-0.10); IMMATURE GRAN PERCENT AUTO 0 % (0-1); LYMPHOCYTES ABSOLUTE AUTO 2.36 K/mm3 (0.84-5.20); LYMPHOCYTES PERCENT AUTO 30 % (21-46); MONOCYTES PERCENT AUTO 10 % (4-13); Mean Corpuscular HGB 19.7 pg (26.0-34.0); Mean Corpuscular HGB Conc 28.2 g/dL (31.5-36.5); Mean Corpuscular Volume 70 fL (80-100); Mean Platelet Volume 8.6 fL (9.1-12.4); NEUTROPHILS ABSOLUTE AUTO 4.39 K/mm3 (1.96-9.15); NEUTROPHILS PERCENT AUTO 55 % (41-73); Platelet Count 573 K/mm3 (150-400); RDW Standard Deviation 46.5 fL (35.1-46.3); Red Blood Cell Count 4.57 M/mm3 (3.80-5.20); White Blood Cell Count 7.94 K/mm3 (4.00-11.30)
[2019-12-26 22:40] LABS: Alanine Aminotransfer (ALT/SGP 16 U/L (12-78); Albumin, Blood 2.4 g/dL (3.4-5.0); Albumin/Globulin Ratio 0.8 (0.8-1.8); Alk Phos 110 U/L (50-136); Anion Gap 10 mmol/L (6-16); Aspartate Aminotrans (AST/SGOT 21 U/L (12-37); Bilirubin, Total 0.2 mg/dL (0.1-1.0); Blood Urea Nitrogen 4 mg/dL (8-24); Bun/Creatinine Ratio 5.8 (12.0-20.0); CO2, Blood 20 mmol/L (21-32); Chloride, Blood 111 mmol/L (98-108); Creatinine, Blood 0.69 mg/dL (0.40-1.00); Glomerular Filtration Rate >60 (60-); Glucose, Blood 100 mg/dL (70-99); Potassium, Blood 3.5 mmol/L (3.5-5.5); Sodium, Blood 141 mmol/L (136-145); Total Protein, Blood 5.4 g/dL (6.4-8.2); Troponin I <0.015 ng/mL (0.000-0.040)
[2019-12-27] MEDS ORDERED: ALBU90OI INH (00:11)
[2019-12-27] MEDS ORDERED: Prednisone50 MG PO (00:11)
== END 2019-12-27 00:22 | disposition home or self-care (01) ==
LOC: ER 21:59
PROVIDERS: Emergency Medicine
DX: J45.901 Unspecified asthma with (acute) exacerbation (principal); F41.9 Anxiety disorder, unspecified; Z88.2 Allergy status to sulfonamides; Z88.5 Allergy status to narcotic agent; Z88.8 Allergy status to other drugs, medicaments and biological substances; Z88.6 Allergy status to analgesic agent; Z79.899 Other long term (current) drug therapy; I10 Essential (primary) hypertension; E03.9 Hypothyroidism, unspecified; F32.9 Major depressive disorder, single episode, unspecified; Z86.711 Personal history of pulmonary embolism
CPT/HCPCS: 71045; 80053; 83880; 84484; 85025; 93005; 93010; 94644; 96374; 99285-25; J2060

== ENCOUNTER 2020-02-13 16:56 | Emergency (ER) | payer MEDICARE, BC | END 2020-02-13 21:11 | disposition home or self-care (01) | LOC: ER 16:56 | DX: F41.9 Anxiety disorder, unspecified (principal); I10 Essential (primary) hypertension; E03.9 Hypothyroidism, unspecified; F32.9 Major depressive disorder, single episode, unspecified; J45.909 Unspecified asthma, uncomplicated; Z88.2 Allergy status to sulfonamides; Z88.6 Allergy status to analgesic agent; Z88.5 Allergy status to narcotic agent; Z88.1 Allergy status to other antibiotic agents; Z88.8 Allergy status to other drugs, medicaments and biological substances; Z79.899 Other long term (current) drug therapy ==

== ENCOUNTER 2020-02-22 11:49 | Emergency (ER) | payer MEDICARE, BC ==
[~2020-02-22] VITALS: Ht 165.1 cm; Wt 79.4 kg
[~2020-02-22 11:49] MED LIST changes: +ALBU90OI INH; +LORA.5 PO; +Prednisone50 MG PO
[2020-02-22 13:00] LABS: BASOPHILS ABSOLUTE AUTO 0.25 K/mm3 (0.00-0.23); BASOPHILS PERCENT AUTO 4 % (0-2); EOSINOPHILS ABSOLUTE AUTO 0.14 K/mm3 (0.00-0.68); EOSINOPHILS PERCENT AUTO 2 % (0-6); Hematocrit 28.6 % (33.0-51.0); Hemoglobin 8.1 g/dL (11.5-16.0); IMMATURE GRAN ABSOLUTE AUTO 0.02 K/mm3 (0.00-0.10); IMMATURE GRAN PERCENT AUTO 0 % (0-1); LYMPHOCYTES ABSOLUTE AUTO 1.51 K/mm3 (0.84-5.20); LYMPHOCYTES PERCENT AUTO 23 % (21-46); MONOCYTES ABSOLUTE AUTO 0.49 K/mm3 (0.16-1.47); MONOCYTES PERCENT AUTO 7 % (4-13); Mean Corpuscular HGB 22.9 pg (26.0-34.0); Mean Corpuscular HGB Conc 28.3 g/dL (31.5-36.5); Mean Corpuscular Volume 81 fL (80-100); Mean Platelet Volume 8.5 fL (9.1-12.4); NEUTROPHILS ABSOLUTE AUTO 4.29 K/mm3 (1.96-9.15); NEUTROPHILS PERCENT AUTO 64 % (41-73); Platelet Count 899 K/mm3 (150-400); RDW Coefficient Variation 25.6 % (11.7-14.2); RDW Standard Deviation 74.7 fL (35.1-46.3); Red Blood Cell Count 3.53 M/mm3 (3.80-5.20)
[2020-02-22 13:24] LABS: Alanine Aminotransfer (ALT/SGP 18 U/L (12-78); Albumin, Blood 2.6 g/dL (3.4-5.0); Albumin/Globulin Ratio 0.7 (0.8-1.8); Alk Phos 150 U/L (50-136); Anion Gap 9 mmol/L (6-16); Aspartate Aminotrans (AST/SGOT 23 U/L (12-37); Bilirubin, Total 0.2 mg/dL (0.1-1.0); Blood Urea Nitrogen 7 mg/dL (8-24); Bun/Creatinine Ratio 8.5 (12.0-20.0); CO2, Blood 22 mmol/L (21-32); Calcium, Blood 8.4 mg/dL (8.5-10.1); Chloride, Blood 111 mmol/L (98-108); Creatinine, Blood 0.82 mg/dL (0.40-1.00); Globulin, Blood 3.6 g/dL (2.2-4.0); Glomerular Filtration Rate >60 (60-); Glucose, Blood 88 mg/dL (70-99); Sodium, Blood 142 mmol/L (136-145); Total Protein, Blood 6.2 g/dL (6.4-8.2); Troponin I <0.015 ng/mL (0.000-0.040)
[2020-02-22] MEDS ORDERED: PANT40 PO (17:52)
[2020-02-22] MEDS ORDERED: ONDA4ODT MM (17:52)
== END 2020-02-22 19:21 | disposition home or self-care (01) ==
LOC: ER 11:49
PROVIDERS: Emergency Medicine
DX: K21.9 Gastro-esophageal reflux disease without esophagitis (principal); Z88.2 Allergy status to sulfonamides; Z88.6 Allergy status to analgesic agent; Z88.5 Allergy status to narcotic agent; Z88.1 Allergy status to other antibiotic agents; Z79.52 Long term (current) use of systemic steroids; Z79.899 Other long term (current) drug therapy
CPT/HCPCS: 36415; 71260; 80053; 84484; 85025; 85379; 93005; 93010; 96365; 96366; 96375; 99284-25; C9113; J3480; J7030; Q9967

== ENCOUNTER 2020-03-19 14:18 | Inpatient (IN) | payer MEDICARE, BC ==
[~2020-03-19] VITALS: Ht 167.6 cm; Wt 73.4 kg
[~2020-03-19 14:18] MED LIST changes: -LEVO-T75 MCG PO; -Mirapex0.25 MG PO; +ONDA4ODT MM; +PANT40 PO; -PROZAC20 MG PO
[2020-03-19 14:43] LABS: BASOPHILS ABSOLUTE AUTO 0.18 K/mm3 (0.00-0.23); BASOPHILS PERCENT AUTO 3 % (0-2); EOSINOPHILS PERCENT AUTO 5 % (0-6); Hematocrit 27.9 % (33.0-51.0); Hemoglobin 7.7 g/dL (11.5-16.0); IMMATURE GRAN ABSOLUTE AUTO 0.02 K/mm3 (0.00-0.10); IMMATURE GRAN PERCENT AUTO 0 % (0-1); LYMPHOCYTES ABSOLUTE AUTO 1.07 K/mm3 (0.84-5.20); LYMPHOCYTES PERCENT AUTO 19 % (21-46); MONOCYTES ABSOLUTE AUTO 0.51 K/mm3 (0.16-1.47); MONOCYTES PERCENT AUTO 9 % (4-13); Mean Corpuscular HGB 21.2 pg (26.0-34.0); Mean Corpuscular HGB Conc 27.6 g/dL (31.5-36.5); Mean Corpuscular Volume 77 fL (80-100); Mean Platelet Volume 8.8 fL (9.1-12.4); NEUTROPHILS ABSOLUTE AUTO 3.46 K/mm3 (1.96-9.15); NEUTROPHILS PERCENT AUTO 63 % (41-73); Platelet Count 726 K/mm3 (150-400); RDW Coefficient Variation 20.8 % (11.7-14.2); RDW Standard Deviation 57.2 fL (35.1-46.3); Red Blood Cell Count 3.64 M/mm3 (3.80-5.20); White Blood Cell Count 5.54 K/mm3 (4.00-11.30)
[2020-03-19 15:04] LABS: Alanine Aminotransfer (ALT/SGP 17 U/L (12-78); Albumin/Globulin Ratio 0.9 (0.8-1.8); Alk Phos 102 U/L (50-136); Anion Gap 8 mmol/L (6-16); Aspartate Aminotrans (AST/SGOT 19 U/L (12-37); Bilirubin, Total 0.2 mg/dL (0.1-1.0); Blood Urea Nitrogen 6 mg/dL (8-24); Bun/Creatinine Ratio 9.1 (12.0-20.0); CO2, Blood 21 mmol/L (21-32); Calcium, Blood 8.6 mg/dL (8.5-10.1); Chloride, Blood 111 mmol/L (98-108); Creatinine, Blood 0.66 mg/dL (0.40-1.00); Globulin, Blood 3.4 g/dL (2.2-4.0); Glomerular Filtration Rate >60 (60-); Glucose, Blood 110 mg/dL (70-99); Potassium, Blood 4.5 mmol/L (3.5-5.5); Sodium, Blood 140 mmol/L (136-145); Total Protein, Blood 6.4 g/dL (6.4-8.2)
[2020-03-19 15:29] LABS: International Normalized Ratio 0.94; Prothrombin Time Results 10.1 Sec (9.7-11.5)
[2020-03-19 17:54] LABS: Source, Urine Clean Catch
[2020-03-19 18:08] LABS: Appearance, Urine Clear (Clear); Bilirubin, Urine Neg (Neg); Blood, Urine Neg (Neg); Color, Urine Yellow (P-Yellow); Glucose Qualitative, Urine Neg (Neg); Ketones, Urine Neg (Neg); Leukocyte Esterase, Urine 1+ (Neg); Nitrite, Urine Neg (Neg); Protein, Urine Neg (Neg); Urobilinogen, Urine 1+ (Normal); pH, Urine 6.5 (5.0-8.0)
[2020-03-19 18:22] LABS: Bacteria Few /hpf; Red Blood Cells, Urine Rare /hpf (0-2); Squamous Epithelial Cells Rare /hpf (Few)
[2020-03-19] MEDS ORDERED: Klor-Con 1010 MEQ PO (18:27)
[2020-03-19] MEDS ORDERED: Mirapex0.25 MG PO (18:28)
[2020-03-19] MEDS ORDERED: PROZAC20 MG PO (18:28)
[2020-03-19] MEDS ORDERED: PANTOPRAZOLE SO40 M2 PO (18:29)
[2020-03-19] MEDS ORDERED: Ventolin/Prove6.7 GM INH (18:30)
[2020-03-19] MEDS ORDERED: LEVO-T75 MCG PO (19:39)
[2020-03-19] MEDS ORDERED: BISMATROL262 MG/15 PO (19:42)
[2020-03-19 20:28] LABS: Percent Saturation 4.9 % (15.0-50.0)
--- NOTE | 2020-03-19 21:18 | NUR ---
RECEIVED REPORT FROM ROSEMARY ED RN. PT TRANSPORTED TO MEDICAL FLOOR VIA W/C. AMBULATED SELF TO BED, STEADY GAIT. NO S/S ACUTE DISTRESS NOTED, APPEARS ANXIOUS. ORIENTED TO ROOM AND UNIT, SETTLED AND VS TAKEN. BLOOD SLIP VERIFIED WITH CHANEL HANNON, BLOOD CONSENT SIGNED. PT REPORTING ABD PAIN, WILL SPEAK TO PROVIDER TO OBTAIN ORDERS FOR PAIN MEDICATION AND IVF FOR BLOOD TRANSFUSION. CONTINUE TO MONITOR.
--- NOTE | 2020-03-19 22:11 | NUR ---
SPOKE TO MARYCRUZ MACIAS REGARDING NEED FOR ORDERS FOR PAIN MEDICATION AND IVF FOR BLOOD TRANSFUSION. ORDERS RECEIVED. CONTINUE TO MONITOR.
--- NOTE | 2020-03-20 04:43 | NUR ---
SHIFT SUMMARY PT ASLEEP AT THIS TIME, NO S/S ACUTE DISTRESS NOTED. WAS MONITORED EVERY 1-2 HOURS WITH NEEDS MET. TOLERATED BLOOD TRANSFUSION WELL, NO S/S REACTION NOTED. PT REPORTS IMPROVING SOB. VS REVIEWED. PT ON FULL LIQUID DIET PER DR. LOCK. UPCOMING EGD LATE THIS AFTERNOON, RAPID COVID TEST PENDING COLLECTION. NO ACUTE CHANGES IN CONDITION NOTED T/O NIGHT. PT DENIES NEEDS AT THIS TIME. CALL LIGHT, POSSESSIONS IN REACH, BED IN LOW POSITION. WILL CONTINUE TO MONITOR UNTIL DAY RN ASSUMES CARE.
[2020-03-20 05:47] LABS: Hematocrit 28.1 % (33.0-51.0); Hemoglobin 8.2 g/dL (11.5-16.0); Mean Corpuscular HGB Conc 29.2 g/dL (31.5-36.5); Mean Corpuscular Volume 79 fL (80-100); Mean Platelet Volume 8.8 fL (9.1-12.4); Platelet Count 567 K/mm3 (150-400); RDW Coefficient Variation 20.9 % (11.7-14.2); RDW Standard Deviation 59.7 fL (35.1-46.3); Red Blood Cell Count 3.57 M/mm3 (3.80-5.20); White Blood Cell Count 5.12 K/mm3 (4.00-11.30)
[2020-03-20 06:05] LABS: Anion Gap 5 mmol/L (6-16); Blood Urea Nitrogen 5 mg/dL (8-24); Bun/Creatinine Ratio 7.6 (12.0-20.0); CO2, Blood 25 mmol/L (21-32); Calcium, Blood 8.2 mg/dL (8.5-10.1); Chloride, Blood 115 mmol/L (98-108); Creatinine, Blood 0.66 mg/dL (0.40-1.00); Glomerular Filtration Rate >60 (60-); Glucose, Blood 89 mg/dL (70-99); Potassium, Blood 4.1 mmol/L (3.5-5.5); Sodium, Blood 145 mmol/L (136-145)
--- NOTE | 2020-03-20 15:21 | NUR ---
Spritual care visit conducted. Patient is sitting up in bed and alert. Patient tells me about her medical history, her current symptoms the plan to perform an endoscopy this afternoon. Patient tells me about the of her spouse (which occurred 3yrs ago) and then, at length, tells me about their relationship from the start until his and struggle she has had dealing with the grief. 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 I normalize patient's experience, reinforce helpful attitudes and practices and provide grief support, therapeutic listening and prayer. Patient responds well and shows signs of reduced stress. I will continue to remain available to patient and family.
--- NOTE | 2020-03-20 15:22 | NUR ---
PT TO DAY SURGERY FOR PROCEDURE
--- NOTE | 2020-03-20 15:24 | NUR ---
PT TRANSFERED FROM FLOOR VIA GURNY. History, Chart, Medications and Allergies reviewed before start of procedure. Lungs clear T/O to Auscultation. Patient confirms NPO status and agrees with scheduled surgery. Pre-Op teaching done. Pt verbalizes understanding.
--- NOTE | 2020-03-20 16:27 | NUR ---
03/20/20 1627 SILVIA CASTELLANO History, Chart, Medications and Allergies reviewed before start of procedure. O2 VIA N/C INTACT THROUGHOUT SEDATION/PROCEDURE. MONITOR INTACT WITH CONTINUOUS PULSE OXIMETRY AND INTERMITTENT BP. 3-LEAD EKG REVIEWED WITH PHYSICIAN PRIOR TO START OF PROCEDURE. PATIENT DETERMINED TO BE ASA APPROPRIATE FOR PROPOFOL SEDATION PRIOR TO START OF PROCEDURE BY DR. LAWLER.
--- NOTE | 2020-03-20 17:10 | NUR ---
RETURNED TO ROOM FROM OR. DAY SURGERY RN CALLED PT'S NIECE PER HER REQUEST. PT TOLERATED PROCEDURE WELL, ASKING FOR FOOD AND DRINK.
--- NOTE | 2020-03-20 18:40 | NUR ---
PT HAD UPPER SCOPE TODAY, TOLERATED WELL, PT IS LOOKING FORWARD TO AND ANTICIPATING DISCHARGE TOMORROW. NO ACUTE CHANGES NOTED THIS SHIFT, WILL CONTINUE TO MONITOR AND REPORT TO ONCOMING RN
--- NOTE | 2020-03-20 19:10 | NUR ---
ASSUMED CARE RECEIVED REPORT FROM CHANEL LYON. ASSUMED CARE OF PT. RESTING AT THIS TIME, REPORTING N/V, ASKING FOR PAIN MEDICATIONS. THIS RN ENCOURAGING PT TO LET STOMACH SETTLE FIRST, PT INDICATED UNDERSTANDING. NO OTHER S/S DISTRESS NOTED. RESPS EVEN AND UNLABORED. CALL LIGHT, POSSESSIONS IN REACH, WILL MEDICATE FOR NAUSEA.
[2020-03-21 06:18] LABS: Hematocrit 28.7 % (33.0-51.0); Hemoglobin 8.1 g/dL (11.5-16.0); Mean Corpuscular HGB 22.4 pg (26.0-34.0); Mean Corpuscular HGB Conc 28.2 g/dL (31.5-36.5); Mean Corpuscular Volume 80 fL (80-100); Platelet Count 538 K/mm3 (150-400); RDW Coefficient Variation 21.2 % (11.7-14.2); RDW Standard Deviation 60.9 fL (35.1-46.3); Red Blood Cell Count 3.61 M/mm3 (3.80-5.20); White Blood Cell Count 4.63 K/mm3 (4.00-11.30)
--- NOTE | 2020-03-21 08:03 | NUR ---
SHIFT SUMMARY PT RESTING COMFORTABLY AT THIS TIME, NO S/S ACUTE DISTRESS NOTED. NO FURTHER EPISODES N/V SINCE BEGINNING OF SHIFT. TOLERATED ZOFRAN WELL. WAS MONITORED EVERY 1-2 HOURS WITH NEEDS MET. DENIES NEEDS AT THIS TIME. VS AND LABS REVIEWED, NO ACUTE CHANGES NOTED, H&H STABLE. CALL LIGHT, POSSESSIONS IN REACH, BED IN LOW POSITION. REPORT GIVEN TO CHANEL CASTANO.
[2020-03-21] MEDS ORDERED: FEROSUL325 M1 PO (12:05)
[2020-03-21] MEDS ORDERED: FOLBIC PO (12:05)
[2020-03-21] MEDS ORDERED: PANT40 PO (12:06)
--- NOTE | 2020-03-21 13:24 | NUR ---
DISCHARGE SUMMARY NO ACUTE CONCERNS AT TIME OF DICAHRGE. SHE WAS GIVEN HER DISCAHRGE INSTRUCTIONS AND HER IV WAS REMOVED. SHE WAS WHEELED DOWN BY RIVETER HAND. ALL MEDICATIONS SENT TO PHARMACY OF CHOICE.
== END 2020-03-21 13:19 | disposition home or self-care (01) | DRG 381 ==
LOC: ER 14:18 → MEDS 14:19
PROVIDERS: Emergency Medicine; Family Medicine; Internal Medicine Gastroenterology; ADMIT Internal Medicine
PROC: 30233N1 Transfusion of Nonautologous Red Blood Cells into Peripheral Vein, Percutaneous Approach (ICD-10-PCS; 2020-03-19)
PROC: 3E0234Z Introduction of Serum, Toxoid and Vaccine into Muscle, Percutaneous Approach (ICD-10-PCS; 2020-03-19)
PROC: 0DCA8ZZ Extirpation of Matter from Jejunum, Via Natural or Artificial Opening Endoscopic (ICD-10-PCS; principal; 2020-03-20 16:00)
DX: K28.9 Gastrojejunal ulcer, unspecified as acute or chronic, without hemorrhage or perforation (principal); K22.10 Ulcer of esophagus without bleeding; N39.0 Urinary tract infection, site not specified; D68.59 Other primary thrombophilia; K21.00 Gastro-esophageal reflux disease with esophagitis, without bleeding; F10.21 Alcohol dependence, in remission; I10 Essential (primary) hypertension; E78.5 Hyperlipidemia, unspecified; D50.9 Iron deficiency anemia, unspecified; K76.0 Fatty (change of) liver, not elsewhere classified; D47.3 Essential (hemorrhagic) thrombocythemia; G47.33 Obstructive sleep apnea (adult) (pediatric); M81.0 Age-related osteoporosis without current pathological fracture; E03.9 Hypothyroidism, unspecified; J44.9 Chronic obstructive pulmonary disease, unspecified; F42.9 Obsessive-compulsive disorder, unspecified; M79.7 Fibromyalgia; G25.81 Restless legs syndrome; G89.4 Chronic pain syndrome; R29.6 Repeated falls; Z91.81 History of falling; Z86.718 Personal history of other venous thrombosis and embolism; Z98.84 Bariatric surgery status; Z87.440 Personal history of urinary (tract) infections
CPT/HCPCS: 36415; 36430; 51701; 80048; 80053; 81001; 82607; 82728; 82746; 83540; 83550; 85025; 85027; 85610; 85730; 86850; 86900; 86901; 86923; 87077; 87086; 87186; 93005; 93010; 94760; 99285-25; A9270; A9270-GY; C9113; G0008; J2405; J2704; J3010; J7030; J7120; P9016; Q2038; U0004

== ENCOUNTER 2020-03-28 11:06 | Emergency (ER) | payer MEDICARE, BC ==
[~2020-03-28] VITALS: Ht 167.6 cm; Wt 77.1 kg
[~2020-03-28 11:06] MED LIST changes: +BISMATROL262 MG/15 PO; +FEROSUL325 M1 PO; +FOLBIC PO; +Klor-Con 1010 MEQ PO; +LEVO-T75 MCG PO; +Mirapex0.25 MG PO; +PANTOPRAZOLE SO40 M2 PO; +PROZAC20 MG PO; +Ventolin/Prove6.7 GM INH
[2020-03-28 11:58] LABS: BASOPHILS ABSOLUTE AUTO 0.16 K/mm3 (0.00-0.23); BASOPHILS PERCENT AUTO 3 % (0-2); EOSINOPHILS ABSOLUTE AUTO 0.18 K/mm3 (0.00-0.68); EOSINOPHILS PERCENT AUTO 3 % (0-6); Hematocrit 36.5 % (33.0-51.0); Hemoglobin 10.2 g/dL (11.5-16.0); IMMATURE GRAN ABSOLUTE AUTO 0.02 K/mm3 (0.00-0.10); IMMATURE GRAN PERCENT AUTO 0 % (0-1); LYMPHOCYTES ABSOLUTE AUTO 1.21 K/mm3 (0.84-5.20); LYMPHOCYTES PERCENT AUTO 21 % (21-46); MONOCYTES ABSOLUTE AUTO 0.42 K/mm3 (0.16-1.47); MONOCYTES PERCENT AUTO 7 % (4-13); Mean Corpuscular HGB 21.5 pg (26.0-34.0); Mean Corpuscular HGB Conc 27.9 g/dL (31.5-36.5); Mean Corpuscular Volume 77 fL (80-100); Mean Platelet Volume 9.2 fL (9.1-12.4); NEUTROPHILS ABSOLUTE AUTO 3.89 K/mm3 (1.96-9.15); NEUTROPHILS PERCENT AUTO 66 % (41-73); Platelet Count 630 K/mm3 (150-400); RDW Coefficient Variation 22.4 % (11.7-14.2); RDW Standard Deviation 61.3 fL (35.1-46.3); Red Blood Cell Count 4.74 M/mm3 (3.80-5.20); White Blood Cell Count 5.88 K/mm3 (4.00-11.30)
[2020-03-28 12:15] LABS: Alanine Aminotransfer (ALT/SGP 18 U/L (12-78); Albumin, Blood 3.6 g/dL (3.4-5.0); Albumin/Globulin Ratio 1.1 (0.8-1.8); Alk Phos 126 U/L (50-136); Anion Gap 6 mmol/L (6-16); Aspartate Aminotrans (AST/SGOT 25 U/L (12-37); Bilirubin, Total 0.4 mg/dL (0.1-1.0); Blood Urea Nitrogen 5 mg/dL (8-24); Bun/Creatinine Ratio 6.7 (12.0-20.0); CO2, Blood 25 mmol/L (21-32); Calcium, Blood 9.2 mg/dL (8.5-10.1); Chloride, Blood 110 mmol/L (98-108); Creatinine, Blood 0.74 mg/dL (0.40-1.00); Globulin, Blood 3.4 g/dL (2.2-4.0); Glomerular Filtration Rate >60 (60-); Glucose, Blood 104 mg/dL (70-99); Potassium, Blood 4.1 mmol/L (3.5-5.5); Sodium, Blood 141 mmol/L (136-145)
[2020-03-28 16:21] LABS: Source, Urine Voided
[2020-03-28 16:25] LABS: Bilirubin, Urine Neg (Neg); Blood, Urine Neg (Neg); Glucose Qualitative, Urine Neg (Neg); Ketones, Urine Neg (Neg); Leukocyte Esterase, Urine 3+ (Neg); Nitrite, Urine Neg (Neg); Protein, Urine Neg (Neg); Urobilinogen, Urine NORM (Normal)
[2020-03-28 16:32] LABS: Appearance, Urine Clear (Clear); Color, Urine Yellow (P-Yellow)
[2020-03-28 16:33] LABS: Bacteria Many /hpf; Red Blood Cells, Urine 0-2 /hpf (0-2); Squamous Epithelial Cells Few /hpf (Few)
[2020-03-28] MEDS ORDERED: PROM25 PO (19:16)
[2020-03-28] MEDS ORDERED: KEFLEX500 MG PO (19:16)
== END 2020-03-28 19:31 | disposition home or self-care (01) ==
LOC: ER 11:06
PROVIDERS: Emergency Medicine
DX: N39.0 Urinary tract infection, site not specified (principal); I10 Essential (primary) hypertension; E03.9 Hypothyroidism, unspecified; F32.9 Major depressive disorder, single episode, unspecified; Z88.2 Allergy status to sulfonamides; Z88.0 Allergy status to penicillin; Z88.8 Allergy status to other drugs, medicaments and biological substances; Z88.5 Allergy status to narcotic agent; Z86.711 Personal history of pulmonary embolism; J45.909 Unspecified asthma, uncomplicated
CPT/HCPCS: 36415; 71045; 71260; 80053; 81001; 84484; 85025; 85379; 87077; 87086; 87186; 93005; 93010; 96361; 96374-59; 96375-59; 99285-25; J2060; J2550; J7030; Q9967

== ENCOUNTER 2020-04-14 13:31 | Emergency (ER) | payer MEDICARE, BC ==
[~2020-04-14] VITALS: Ht 167.6 cm; Wt 77.1 kg
[~2020-04-14 13:31] MED LIST changes: +KEFLEX500 MG PO; +PROM25 PO
[2020-04-14 15:44] LABS: BASOPHILS ABSOLUTE AUTO 0.11 K/mm3 (0.00-0.23); BASOPHILS PERCENT AUTO 2 % (0-2); EOSINOPHILS PERCENT AUTO 1 % (0-6); Hematocrit 33.8 % (33.0-51.0); Hemoglobin 9.5 g/dL (11.5-16.0); IMMATURE GRAN ABSOLUTE AUTO 0.02 K/mm3 (0.00-0.10); IMMATURE GRAN PERCENT AUTO 0 % (0-1); LYMPHOCYTES ABSOLUTE AUTO 0.99 K/mm3 (0.84-5.20); LYMPHOCYTES PERCENT AUTO 14 % (21-46); MONOCYTES ABSOLUTE AUTO 0.63 K/mm3 (0.16-1.47); MONOCYTES PERCENT AUTO 9 % (4-13); Mean Corpuscular HGB 21.5 pg (26.0-34.0); Mean Corpuscular HGB Conc 28.1 g/dL (31.5-36.5); Mean Corpuscular Volume 77 fL (80-100); Mean Platelet Volume 9.6 fL (9.1-12.4); NEUTROPHILS PERCENT AUTO 73 % (41-73); Platelet Count 484 K/mm3 (150-400); RDW Standard Deviation 59.8 fL (35.1-46.3); Red Blood Cell Count 4.42 M/mm3 (3.80-5.20); White Blood Cell Count 6.95 K/mm3 (4.00-11.30)
[2020-04-14 15:58] LABS: Alanine Aminotransfer (ALT/SGP 23 U/L (12-78); Albumin, Blood 3.1 g/dL (3.4-5.0); Albumin/Globulin Ratio 1.2 (0.8-1.8); Alk Phos 89 U/L (50-136); Anion Gap 5 mmol/L (6-16); Aspartate Aminotrans (AST/SGOT 25 U/L (12-37); Bilirubin, Total 0.4 mg/dL (0.1-1.0); Blood Urea Nitrogen 5 mg/dL (8-24); Bun/Creatinine Ratio 7.2 (12.0-20.0); CO2, Blood 24 mmol/L (21-32); Calcium, Blood 8.6 mg/dL (8.5-10.1); Chloride, Blood 114 mmol/L (98-108); Creatinine, Blood 0.69 mg/dL (0.40-1.00); Globulin, Blood 2.6 g/dL (2.2-4.0); Glomerular Filtration Rate >60 (60-); Glucose, Blood 110 mg/dL (70-99); Potassium, Blood 3.4 mmol/L (3.5-5.5); Sodium, Blood 143 mmol/L (136-145); Total Protein, Blood 5.7 g/dL (6.4-8.2)
[2020-04-14] MEDS ORDERED: Ultram50 MG PO (16:50)
== END 2020-04-14 18:41 | disposition home or self-care (01) ==
LOC: ER 13:31
PROVIDERS: Emergency Medicine
DX: M54.6 Pain in thoracic spine (principal); F41.9 Anxiety disorder, unspecified; J45.909 Unspecified asthma, uncomplicated; I10 Essential (primary) hypertension; F32.9 Major depressive disorder, single episode, unspecified; Z79.899 Other long term (current) drug therapy; Z88.2 Allergy status to sulfonamides; Z88.0 Allergy status to penicillin; Z88.5 Allergy status to narcotic agent
CPT/HCPCS: 36415; 72070; 80053; 85025; 93005; 93010; 96372-59; 96374; 99284-25; J1170; J2405

== ENCOUNTER 2020-06-03 15:49 | Emergency (ER) | payer OTHER ==
[~2020-06-03] VITALS: Ht 167.6 cm; Wt 63.5 kg
[~2020-06-03 15:49] MED LIST changes: +Ultram50 MG PO
[2020-06-03 16:55] LABS: BASOPHILS ABSOLUTE AUTO 0.08 K/mm3 (0.00-0.23); BASOPHILS PERCENT AUTO 1 % (0-2); EOSINOPHILS ABSOLUTE AUTO 0.09 K/mm3 (0.00-0.68); EOSINOPHILS PERCENT AUTO 1 % (0-6); Hematocrit 46.3 % (33.0-51.0); Hemoglobin 14.2 g/dL (11.5-16.0); IMMATURE GRAN ABSOLUTE AUTO 0.04 K/mm3 (0.00-0.10); IMMATURE GRAN PERCENT AUTO 0 % (0-1); LYMPHOCYTES ABSOLUTE AUTO 1.17 K/mm3 (0.84-5.20); LYMPHOCYTES PERCENT AUTO 10 % (21-46); MONOCYTES ABSOLUTE AUTO 0.94 K/mm3 (0.16-1.47); MONOCYTES PERCENT AUTO 8 % (4-13); Mean Corpuscular HGB Conc 30.7 g/dL (31.5-36.5); Mean Corpuscular Volume 78 fL (80-100); Mean Platelet Volume 9.8 fL (9.1-12.4); NEUTROPHILS ABSOLUTE AUTO 9.47 K/mm3 (1.96-9.15); NEUTROPHILS PERCENT AUTO 80 % (41-73); Platelet Count 451 K/mm3 (150-400); RDW Coefficient Variation 25.5 % (11.7-14.2); RDW Standard Deviation 70.6 fL (35.1-46.3); Red Blood Cell Count 5.91 M/mm3 (3.80-5.20); White Blood Cell Count 11.79 K/mm3 (4.00-11.30)
[2020-06-03 17:11] LABS: Alanine Aminotransfer (ALT/SGP 23 U/L (12-78); Albumin, Blood 2.4 g/dL (3.4-5.0); Albumin/Globulin Ratio 0.8 (0.8-1.8); Alk Phos 123 U/L (50-136); Anion Gap 12 mmol/L (6-16); Aspartate Aminotrans (AST/SGOT 22 U/L (12-37); Bilirubin, Total 0.6 mg/dL (0.1-1.0); Blood Urea Nitrogen 16 mg/dL (8-24); CO2, Blood 25 mmol/L (21-32); Calcium, Blood 8.2 mg/dL (8.5-10.1); Chloride, Blood 105 mmol/L (98-108); Creatinine, Blood 0.73 mg/dL (0.40-1.00); Globulin, Blood 2.9 g/dL (2.2-4.0); Glomerular Filtration Rate >60 (60-); Glucose, Blood 86 mg/dL (70-99); Potassium, Blood 3.3 mmol/L (3.5-5.5); Sodium, Blood 142 mmol/L (136-145); Total Protein, Blood 5.3 g/dL (6.4-8.2)
[2020-06-03 17:44] LABS: Source, Urine Clean Catch
[2020-06-03 18:04] LABS: Appearance, Urine Clear (Clear); Blood, Urine Neg (Neg); Color, Urine Amber (P-Yellow); Glucose Qualitative, Urine Neg (Neg); Ketones, Urine 3+ (Neg); Leukocyte Esterase, Urine 2+ (Neg); Nitrite, Urine Neg (Neg); Protein, Urine 2+ (Neg); Specific Gravity, Urine 1.025 (1.003-1.022); Urobilinogen, Urine 2+ (Normal)
[2020-06-03 18:19] LABS: Bilirubin, Urine 2+ (Neg)
[2020-06-03 18:21] LABS: Bacteria Rare /hpf; Mucus Light (0-Heavy); Red Blood Cells, Urine 0-2 /hpf (0-2); Squamous Epithelial Cells Rare /hpf (Few)
[2020-06-03 19:03] LABS: Influenza A, PCR Negative (NEGATIVE); Influenza B, PCR Negative (NEGATIVE); Resp Syncytial Virus, PCR Negative (NEGATIVE); SARS-Cov-2 (COVID-19) PCR, MMC Negative (NEGATIVE)
[2020-06-03] MEDS ORDERED: Vibramycin100 MG PO (20:01)
[2020-06-03] MEDS ORDERED: Keflex500 MG PO (20:01)
== END 2020-06-03 21:18 | disposition home or self-care (01) ==
LOC: ER 15:49
PROVIDERS: Emergency Medicine
DX: N39.0 Urinary tract infection, site not specified (principal); E87.6 Hypokalemia; D72.829 Elevated white blood cell count, unspecified; J18.9 Pneumonia, unspecified organism; Z20.822 Contact with and (suspected) exposure to COVID-19
CPT/HCPCS: 0241U; 71046; 74177; 80053; 81001; 83605; 83690; 85025; 87086; 93005; 93010; 96365-59; 96375; 99285-25; A9270; J0696; J2405; Q9967

== ENCOUNTER 2020-06-12 15:48 | Emergency (ER) | payer OTHER ==
[~2020-06-12] VITALS: Ht 165.1 cm; Wt 70.8 kg
[~2020-06-12 15:48] MED LIST changes: +Keflex500 MG PO; +Vibramycin100 MG PO
[2020-06-12 16:52] LABS: BASOPHILS ABSOLUTE AUTO 0.08 K/mm3 (0.00-0.23); BASOPHILS PERCENT AUTO 1 % (0-2); EOSINOPHILS ABSOLUTE AUTO 0.04 K/mm3 (0.00-0.68); EOSINOPHILS PERCENT AUTO 1 % (0-6); Hematocrit 43.8 % (33.0-51.0); Hemoglobin 13.4 g/dL (11.5-16.0); IMMATURE GRAN ABSOLUTE AUTO 0.05 K/mm3 (0.00-0.10); IMMATURE GRAN PERCENT AUTO 1 % (0-1); LYMPHOCYTES PERCENT AUTO 10 % (21-46); MONOCYTES ABSOLUTE AUTO 0.64 K/mm3 (0.16-1.47); MONOCYTES PERCENT AUTO 7 % (4-13); Mean Corpuscular HGB 24.1 pg (26.0-34.0); Mean Corpuscular HGB Conc 30.6 g/dL (31.5-36.5); Mean Corpuscular Volume 79 fL (80-100); Mean Platelet Volume 9.9 fL (9.1-12.4); NEUTROPHILS ABSOLUTE AUTO 6.94 K/mm3 (1.96-9.15); NEUTROPHILS PERCENT AUTO 80 % (41-73); Platelet Count 403 K/mm3 (150-400); RDW Coefficient Variation 25.2 % (11.7-14.2); RDW Standard Deviation 70.1 fL (35.1-46.3); Red Blood Cell Count 5.57 M/mm3 (3.80-5.20); White Blood Cell Count 8.65 K/mm3 (4.00-11.30)
[2020-06-12 17:07] LABS: Alanine Aminotransfer (ALT/SGP 31 U/L (12-78); Albumin, Blood 2.1 g/dL (3.4-5.0); Albumin/Globulin Ratio 0.8 (0.8-1.8); Alk Phos 83 U/L (50-136); Anion Gap 8 mmol/L (6-16); Aspartate Aminotrans (AST/SGOT 24 U/L (12-37); Bilirubin, Total 0.3 mg/dL (0.1-1.0); Blood Urea Nitrogen 14 mg/dL (8-24); Bun/Creatinine Ratio 21.4 (12.0-20.0); CO2, Blood 27 mmol/L (21-32); Calcium, Blood 8.4 mg/dL (8.5-10.1); Chloride, Blood 108 mmol/L (98-108); Creatinine, Blood 0.66 mg/dL (0.40-1.00); Globulin, Blood 2.7 g/dL (2.2-4.0); Glomerular Filtration Rate >60 (60-); Glucose, Blood 94 mg/dL (70-99); Potassium, Blood 3.1 mmol/L (3.5-5.5); Sodium, Blood 143 mmol/L (136-145); Total Protein, Blood 4.8 g/dL (6.4-8.2); Troponin I <0.015 ng/mL (0.000-0.040)
== END 2020-06-12 20:10 | disposition home or self-care (01) ==
LOC: ER 15:48
PROVIDERS: Emergency Medicine
DX: R07.9 Chest pain, unspecified (principal); E03.9 Hypothyroidism, unspecified; I10 Essential (primary) hypertension; Z79.899 Other long term (current) drug therapy; Z88.2 Allergy status to sulfonamides; Z88.8 Allergy status to other drugs, medicaments and biological substances; Z88.5 Allergy status to narcotic agent; Z88.1 Allergy status to other antibiotic agents
CPT/HCPCS: 71045; 80053; 84484; 85025; 93005; 93010; 99285-25; A9270

== ENCOUNTER 2020-07-02 13:53 | Emergency (ER) | payer OTHER ==
[~2020-07-02] VITALS: Ht 165.1 cm; Wt 58.1 kg
[2020-07-02 14:42] LABS: BASOPHILS PERCENT AUTO 2 % (0-2); EOSINOPHILS ABSOLUTE AUTO 0.11 K/mm3 (0.00-0.68); EOSINOPHILS PERCENT AUTO 2 % (0-6); Hematocrit 46.1 % (33.0-51.0); Hemoglobin 14.1 g/dL (11.5-16.0); IMMATURE GRAN ABSOLUTE AUTO 0.02 K/mm3 (0.00-0.10); IMMATURE GRAN PERCENT AUTO 0 % (0-1); LYMPHOCYTES ABSOLUTE AUTO 1.14 K/mm3 (0.84-5.20); LYMPHOCYTES PERCENT AUTO 21 % (21-46); MONOCYTES ABSOLUTE AUTO 0.54 K/mm3 (0.16-1.47); MONOCYTES PERCENT AUTO 10 % (4-13); Mean Corpuscular HGB 26.1 pg (26.0-34.0); Mean Corpuscular HGB Conc 30.6 g/dL (31.5-36.5); Mean Corpuscular Volume 85 fL (80-100); Mean Platelet Volume 9.1 fL (9.1-12.4); NEUTROPHILS ABSOLUTE AUTO 3.53 K/mm3 (1.96-9.15); NEUTROPHILS PERCENT AUTO 65 % (41-73); Platelet Count 331 K/mm3 (150-400); RDW Coefficient Variation 23.4 % (11.7-14.2); RDW Standard Deviation 72.4 fL (35.1-46.3); White Blood Cell Count 5.44 K/mm3 (4.00-11.30)
[2020-07-02 15:09] LABS: Alanine Aminotransfer (ALT/SGP 25 U/L (12-78); Albumin, Blood 2.5 g/dL (3.4-5.0); Alk Phos 106 U/L (50-136); Anion Gap 4 mmol/L (6-16); Aspartate Aminotrans (AST/SGOT 20 U/L (12-37); Bilirubin, Total 0.4 mg/dL (0.1-1.0); Blood Urea Nitrogen 7 mg/dL (8-24); Bun/Creatinine Ratio 8.4 (12.0-20.0); CO2, Blood 24 mmol/L (21-32); Calcium, Blood 8.2 mg/dL (8.5-10.1); Chloride, Blood 117 mmol/L (98-108); Creatinine, Blood 0.84 mg/dL (0.40-1.00); Globulin, Blood 2.6 g/dL (2.2-4.0); Glomerular Filtration Rate >60 (60-); Glucose, Blood 78 mg/dL (70-99); Magnesium, Blood 2.4 mg/dL (1.6-2.4); Potassium, Blood 3.9 mmol/L (3.5-5.5); Sodium, Blood 145 mmol/L (136-145); Total Protein, Blood 5.1 g/dL (6.4-8.2)
[2020-07-02] MEDS ORDERED: Bentyl20 MG PO (16:30)
[2020-07-02] MEDS ORDERED: ONDA4ODT MM (16:30)
== END 2020-07-02 16:50 | disposition home or self-care (01) ==
LOC: ER 13:53
PROVIDERS: Physician Assistant
DX: E86.0 Dehydration (principal); R11.2 Nausea with vomiting, unspecified; Z88.2 Allergy status to sulfonamides; Z88.5 Allergy status to narcotic agent; Z79.899 Other long term (current) drug therapy
CPT/HCPCS: 36415; 80053; 83690; 83735; 85025; 96360; 99284-25; J7030

== ENCOUNTER 2021-12-09 11:24 | Inpatient (IN) | payer OTHER, MEDICARE ==
[~2021-12-09] VITALS: Ht 170.2 cm; Wt 64.9 kg
[~2021-12-09 11:24] MED LIST changes: +Bentyl20 MG PO
[2021-12-09 14:28] LABS: BASOPHILS ABSOLUTE AUTO 0.09 K/mm3 (0.00-0.23); BASOPHILS PERCENT AUTO 1 % (0-2); EOSINOPHILS ABSOLUTE AUTO 0.06 K/mm3 (0.00-0.68); EOSINOPHILS PERCENT AUTO 1 % (0-6); Hematocrit 34.1 % (33.0-51.0); Hemoglobin 10.6 g/dL (11.5-16.0); IMMATURE GRAN ABSOLUTE AUTO 0.03 K/mm3 (0.00-0.10); IMMATURE GRAN PERCENT AUTO 0 % (0-1); LYMPHOCYTES ABSOLUTE AUTO 0.57 K/mm3 (0.84-5.20); LYMPHOCYTES PERCENT AUTO 6 % (21-46); MONOCYTES ABSOLUTE AUTO 0.75 K/mm3 (0.16-1.47); MONOCYTES PERCENT AUTO 8 % (4-13); Mean Corpuscular HGB 25.7 pg (26.0-34.0); Mean Corpuscular HGB Conc 31.1 g/dL (31.5-36.5); Mean Corpuscular Volume 83 fL (80-100); Mean Platelet Volume 9.4 fL (9.1-12.4); NEUTROPHILS ABSOLUTE AUTO 8.49 K/mm3 (1.96-9.15); NEUTROPHILS PERCENT AUTO 85 % (41-73); Platelet Count 420 K/mm3 (150-400); RDW Coefficient Variation 15.1 % (11.7-14.2); RDW Standard Deviation 45.9 fL (35.1-46.3); Red Blood Cell Count 4.13 M/mm3 (3.80-5.20); White Blood Cell Count 9.99 K/mm3 (4.00-11.30)
[2021-12-09 14:47] LABS: Albumin, Blood 3.1 g/dL (3.4-5.0); Albumin/Globulin Ratio 1.2 (0.8-1.8); Bilirubin, Total 0.4 mg/dL (0.1-1.0); Bun/Creatinine Ratio 12.9 (12.0-20.0); Calcium, Blood 8.3 mg/dL (8.5-10.1); Creatinine, Blood 0.62 mg/dL (0.40-1.00); Globulin, Blood 2.6 g/dL (2.2-4.0); Potassium, Blood 4.1 mmol/L (3.5-5.5); Total Protein, Blood 5.7 g/dL (6.4-8.2)
--- NOTE | 2021-12-09 16:03 | NUR ---
PT ARRIVED TO UNIT FROM ED TRANSFERRED FROM [facility] TO [facility], REMOVED CLOTHES AND PERFORMED SURGICAL SITE INFECTION PREVENTION KIT. LCA. 02 SATS 96% ON RA. HRR. BT X4. LPPP BUT FAINT. LLE APPEARS SHORTENED. ORIENTED TO USE OF CALL LIGHT.
[2021-12-09] MEDS ORDERED: FLUT1DIS2 INH (18:58)
[2021-12-09] MEDS ORDERED: Flonase 0.05% N16 GM (18:59)
[2021-12-09] MEDS ORDERED: Buspirone HCl15 MG PO (19:00)
[2021-12-09] MEDS ORDERED: ESCI20 PO (19:03)
[2021-12-09] MEDS ORDERED: Bupropion HCl75 MG PO (19:10)
[2021-12-09] MEDS ORDERED: METO5A PO (19:10)
[2021-12-09] MEDS ORDERED: AMLO10 PO (19:12)
[2021-12-09] MEDS ORDERED: EUTHYROX50 MCG PO (19:12)
[2021-12-09] MEDS ORDERED: MORP15ER PO (19:13)
[2021-12-09] MEDS ORDERED: ATROVENT (19:15)
[2021-12-09] MEDS ORDERED: ONDA4ODT PO (19:16)
[2021-12-10 04:43] LABS: BASOPHILS ABSOLUTE AUTO 0.08 K/mm3 (0.00-0.23); BASOPHILS PERCENT AUTO 1 % (0-2); EOSINOPHILS ABSOLUTE AUTO 0.08 K/mm3 (0.00-0.68); EOSINOPHILS PERCENT AUTO 1 % (0-6); Hemoglobin 10.1 g/dL (11.5-16.0); IMMATURE GRAN ABSOLUTE AUTO 0.02 K/mm3 (0.00-0.10); IMMATURE GRAN PERCENT AUTO 0 % (0-1); LYMPHOCYTES ABSOLUTE AUTO 0.69 K/mm3 (0.84-5.20); LYMPHOCYTES PERCENT AUTO 11 % (21-46); MONOCYTES ABSOLUTE AUTO 0.87 K/mm3 (0.16-1.47); MONOCYTES PERCENT AUTO 14 % (4-13); Mean Corpuscular HGB 25.4 pg (26.0-34.0); Mean Corpuscular HGB Conc 30.6 g/dL (31.5-36.5); Mean Corpuscular Volume 83 fL (80-100); Mean Platelet Volume 9.3 fL (9.1-12.4); NEUTROPHILS ABSOLUTE AUTO 4.34 K/mm3 (1.96-9.15); NEUTROPHILS PERCENT AUTO 72 % (41-73); Platelet Count 373 K/mm3 (150-400); RDW Coefficient Variation 14.9 % (11.7-14.2); RDW Standard Deviation 45.4 fL (35.1-46.3); Red Blood Cell Count 3.98 M/mm3 (3.80-5.20); White Blood Cell Count 6.08 K/mm3 (4.00-11.30)
[2021-12-10 04:57] LABS: Bun/Creatinine Ratio 13.1 (12.0-20.0); Calcium, Blood 7.9 mg/dL (8.5-10.1); Creatinine, Blood 0.53 mg/dL (0.40-1.00); Magnesium, Blood 2.2 mg/dL (1.6-2.4); Potassium, Blood 3.7 mmol/L (3.5-5.5)
--- NOTE | 2021-12-10 05:02 | NUR ---
SUMMARY PT PAIN HAS BEEN MANAGED WELL. PT IS VERY FORGETFUL. PT HAS BEEN NPO SINCE MIDNIGHT. PT VOIDING. CALL LIGHT IN REACH.
[2021-12-10 07:13] LABS: Influenza A, PCR NEGATIVE (NEGATIVE); Influenza B, PCR NEGATIVE (NEGATIVE); Resp Syncytial Virus, PCR NEGATIVE (NEGATIVE); SARS-Cov-2 (COVID-19) PCR, MMC NEGATIVE (NEGATIVE)
--- NOTE | 2021-12-10 07:58 | NUR ---
0715 VOICEMAIL LEFT FOR PATIENTS NIECE, MELVINA, TO LET HER KNOW ANTICIPATED TIME OF SURGERY TODAY
--- NOTE | 2021-12-10 12:11 | NUR ---
1130 TO DAY SURGERY VIA BED. NOTIFIED PATIENTS MELVINA CORLEY, THAT PATIENT GOING TO SURGERY
--- NOTE | 2021-12-10 15:28 | NUR ---
1515 RETURNED TO ROOM FROM PACU. AWAKE ALERT, DENIES ANY PAIN. LEFT HIP AQUACEL DRESSING DRY AND INTACT. PT MOVES BILAT LEGS SPONTANEOUSLY. PT DENIES ANY NUMBNESS OR TINGLING. ICE PACK PLACED TO INCISION AREA. NOTIFIED PATIENTS MELVINA CORLEY, OF PATIENTS RETURN TO ROOM POST OP
--- NOTE | 2021-12-10 17:19 | NUR ---
SPOKE WITH PATIENTS SISTER, PER SISTER PATIENT HAS A LONG HISTOR OF ALCOHOL ABUSE THOUGH HAS NOT CONSUMED ON A REGULAR BASIS FOR A COUPLE OF YEARS. SISTER REPORTS THAT PATIENT HAD LEFT HER [facility] ASS[facility]IVING FAC[facility], WALKED TO [facility] AND PURCHASED ALCOHOL WHICH WAS AGAINST THE RULES AT ASSISTED LIVING FACILITY. PTS SISTER ALSON REPORTS PATIENT HAS A LONG HISTORY OF "OVERUSE" OF PRESCRIPTION MEDICATIONS AND HAS HAD MEMORY ISSUES FOR SEVERAL YEARS. PT WITH ONE ATTEMPT TO GET SELF OOB WITHOUT CALLING FOR ASSIST. BED ALARM IN PLACE. PT STANDBY ASSIST TO BEDSIDE COMMODE. PT DENIES PAIN. JYOTI PO FOOD AND FLUIDS WITHOUT NAUSEA. LEFT HIP DRESSING DRY AND INTACT. PT DENIES ANY NUMBNESS OR TINGLING OF ECTREMITIES, MOVEMENT AND PULSES INTACT TO ALL ECTREMITIESS
--- NOTE | 2021-12-11 11:51 | NUR ---
Pt. is in a recliner and welcomes my visit. Pt. is unsettled about her prognosis, and occasionally cathartic throughout my visit. Listen pastorally with a calming presence. Pt. displays evidence of not having much familial support. Establish rapport as Pt. seeks to have pastoral support. Prayed with pt. Pt. verblized gratitude for the spiritual care visit, and requested I return.
--- NOTE | 2021-12-11 18:08 | NUR ---
PT SITTING IN CHAIR MUCH OF SHIFT. 1 PERSON ASSIST TO BR. PT AT TIMES IMPULSIVE ABOUT GETTING UP FROM CHAIR AND USE WALKER. NEEDS CUES TO MAINTAIN ALIGNMENT WITH WALKER AND TO USE CONTROLLED BODY MOVEMNTS TO GET INTO AND OT OF CHAIR. PT REPORTS PAIN 9/10 WITH A FACIAL SCORE OF 2. HIP DRESSING CLEAN, DRY AND INTACT
--- NOTE | 2021-12-12 05:34 | NUR ---
ASSUMED CARE OF PT AT 1900. NO ACUTE CHANGES THIS SHIFT. PT IS ALERT TO SELF AND PLACE, HAS INTERMITTENT CONFUSION, BED ALARM ON FOR SAFETY. PT IS A MIN ASSIST TO BR WITH FWW AND GAIT BELT. PRN TORADOL AND TYLENOL FOR PAIN. POST OP DAY 3 FOR L HIP HEMIARTHROPLASTY FROM FRACTURE, CSM IS INTACT. PT RESTS BETWEEN CARES, IS ABLE TO SLEEP 6+ HOURS THIS SHIFT. TOLERATING DIET. WILL CONTINUE TO MONITOR THIS PT AND GICE HANDOFF REPORT TO ONCOMING RN.
--- NOTE | 2021-12-12 17:31 | NUR ---
SHIFT SUMMARY POD 3 LEFT EVELIN HIP. AQUACEL IN PLACE, C/D/I. PATIENT REPORTS MINIMAL PAIN, MANAGED PER EMAR. UP TO CHAIR AND BATHROOM, 1P SBA W/ FWW & GB. PATIENT UP TO VHAIR FOR BREAKFAST, REFUSED CHAIR FOR LUNCH AND DINNER. WORKED WITH PHYSICAL THERAPY AND TOLERATED WELL. CALL LIGHT IN REACH, WILL REPORT TO ONCOMING RN.
--- NOTE | 2021-12-13 05:00 | NUR ---
ASSUMED CARE OF PT AT 1900. NO ACUTE CHANGES THIS SHIFT. PT IS ALERT, HAS BASELINE DEMENTIA, HAS SOME CONFUSTION BUT REORIENTS EASILY. POST OP DAY 4 FOR L HIP HEMIARTHROPLASTY, CSM IS INTACT. PT ABLE TO AMBULATE TO BATHROOM WITH MINIMAL ASSISTANCE. AQUACEL DRESSING IS CDI. PAIN CONTROLLED WITH TORADOL AND TYLENOL. PT RESTS [facility], IS ABLE TO SLEEP 5+ HOURS THIS SHIFT. PT COMPLAINS OF RESTLESS LEGS DURING THE NIGHT. WILL CONTINUE TO MONITOR AND GIVE HANDOFF REPORT TO DAY SHIFT RN
--- NOTE | 2021-12-13 18:03 | NUR ---
SHIFT SUMMARY POD 4 L EVELIN HIP. AQUACEL IN PLACE TO LEFT HIP, C/D/I, DRESSING CHANGED THIS SHIFT D/T PEELING OFF AT EDGE. MINIMAL PAIN T LEFT LEG MANAGED PER EMAR. PATIENT UP TO BATHROOM T/O SHIFT. REPORTS OF UPSET STOMACH TODAY, ALTHOUGH DID REPORT IT IMPROVED THIS AFTERNOON. EATING, DRINKING, & VOIDING WELL. CALLS APPROPRIATELY, WILL REPORT TO ONCOMING RN.
--- NOTE | 2021-12-14 05:41 | NUR ---
ASSUMED CARE OF PT AT 1900 HRS. NO ACUTE CHANGES THIS SHIFT. PT IS ALERT AND ORIENTED, SBA TO BR AND IS ABLE TO MAKE NEEDS KNOWN. POST OP DAY 5 FOR HIP HEMIARTHOPLASTY, DRESSING CDI AND CSM IS INTACT. PAIN IS WELL MANAGED WITH IV TORADOL. PT ABLE TO SLEEP 6+ HOURS THIS SHIFT. DOES REPORT SOME MILD STOMACH DISCOMFORT AND NAUSEA. WILL CONTINUE TO MONITOR AND GIVE HANDOFF REPORT TO DAYSHIFT RN.
[2021-12-14 15:30] LABS: SARS-Cov-2 (COVID-19) PCR, MMC NEGATIVE (NEGATIVE)
--- NOTE | 2021-12-14 18:35 | NUR ---
TRANSFER/DISCHARGE SUMMARY PT A&OX3, VSS/RA, AMB SBA FWW & GB TO BRP, VOIDING WELL, JYOTI PO. POD4 L EVELIN HIP, AQUACEL CDI, PAIN MANAGED WELL WITH TORADOL. LEFT WITH TRANSPORT TO GO TO [facility]. REPORT CALLED TO JOSIE AT 1530. IV DC'D.
== END 2021-12-14 17:45 | DRG 522 ==
LOC: ER 11:24 → SURS 15:22
PROVIDERS: Emergency Medicine; Family Medicine; ADMIT Internal Medicine
PROC: 0SRS0JA Replacement of Left Hip Joint, Femoral Surface with Synthetic Substitute, Uncemented, Open Approach (ICD-10-PCS; principal; 2021-12-09)
DX: S72.002A Fracture of unspecified part of neck of left femur, initial encounter for closed fracture (principal); D68.59 Other primary thrombophilia; F11.20 Opioid dependence, uncomplicated; I10 Essential (primary) hypertension; Z20.822 Contact with and (suspected) exposure to COVID-19; E03.9 Hypothyroidism, unspecified; G47.33 Obstructive sleep apnea (adult) (pediatric); M81.0 Age-related osteoporosis without current pathological fracture; E78.5 Hyperlipidemia, unspecified; F41.8 Other specified anxiety disorders; R32 Unspecified urinary incontinence; I71.2 Thoracic aortic aneurysm, without rupture; F10.20 Alcohol dependence, uncomplicated; G31.84 Mild cognitive impairment of uncertain or unknown etiology; D64.9 Anemia, unspecified; G25.81 Restless legs syndrome; Z96.653 Presence of artificial knee joint, bilateral; Z90.49 Acquired absence of other specified parts of digestive tract; Z90.710 Acquired absence of both cervix and uterus; Z98.84 Bariatric surgery status; Z98.1 Arthrodesis status; Z98.890 Other specified postprocedural states; Z91.19 Patient's noncompliance with other medical treatment and regimen; Z86.711 Personal history of pulmonary embolism; Z88.1 Allergy status to other antibiotic agents; Z88.2 Allergy status to sulfonamides; Z88.5 Allergy status to narcotic agent; Z88.8 Allergy status to other drugs, medicaments and biological substances; Z79.899 Other long term (current) drug therapy; W18.39XA Other fall on same level, initial encounter; Y92.481 Parking lot as the place of occurrence of the external cause
CPT/HCPCS: 0241U; 36415; 73502; 80048; 80053; 83735; 85025; 93005; 93010; 93306; 94640; 94664; 94760; 94762; 96374; 96375; 96376; 97110; 97116; 97162; 97166; 97530; 97535; 99285-25; A9270; C1776; J0171; J0690; J0735; J1100; J1170; J1885; J2270; J2370; J2405; J2704; J2795; J3010; J3370; J7030; J7060; U0004

== ENCOUNTER 2021-12-18 00:32 | Emergency (ER) | payer MEDICARE, OTHER ==
[~2021-12-18] VITALS: Ht 165.1 cm; Wt 64.4 kg
[~2021-12-18 00:32] MED LIST changes: +AMLO10 PO; +ATROVENT; +Bupropion HCl75 MG PO; +Buspirone HCl15 MG PO; +ESCI20 PO; +EUTHYROX50 MCG PO; +FLUT1DIS2 INH; +Flonase 0.05% N16 GM; +METO5A PO; +MORP15ER PO; +ONDA4ODT PO
[2021-12-18] MEDS ORDERED: MELO7.5 PO (01:19)
[2021-12-18 01:20] LABS: Hemoglobin 11.4 g/dL (11.5-16.0); Mean Corpuscular HGB 25.1 pg (26.0-34.0); Mean Corpuscular HGB Conc 31.7 g/dL (31.5-36.5); Mean Corpuscular Volume 79 fL (80-100); Mean Platelet Volume 9.4 fL (9.1-12.4); Platelet Count 549 K/mm3 (150-400); RDW Coefficient Variation 15.9 % (11.7-14.2); RDW Standard Deviation 45.3 fL (35.1-46.3); Red Blood Cell Count 4.54 M/mm3 (3.80-5.20)
[2021-12-18 01:39] LABS: Albumin/Globulin Ratio 0.6 (0.8-1.8); Bilirubin, Total 0.5 mg/dL (0.1-1.0); Bun/Creatinine Ratio 15.4 (12.0-20.0); Calcium, Blood 7.5 mg/dL (8.5-10.1); Creatinine, Blood 1.49 mg/dL (0.40-1.00); Globulin, Blood 3.2 g/dL (2.2-4.0); Potassium, Blood 3.2 mmol/L (3.5-5.5); Total Protein, Blood 5.2 g/dL (6.4-8.2)
[2021-12-18 01:49] LABS: BAND PERCENT MAN 52 % (0-8); BASOPHILS PERCENT MAN 0 % (0-2); EOSINOPHILS PERCENT MAN 0 % (0-6); LYMPHOCYTES ABSOLUTE MAN 0.31 K/mm3 (0.84-5.20); LYMPHOCYTES PERCENT MAN 3 % (21-46); METAMYELOCYTE ABSOLUTE MAN 0.31 K/mm3 (0.00-0.00); METAMYELOCYTE PERCENT MAN 3 % (0-0); MONOCYTES ABSOLUTE MAN 0.42 K/mm3 (0.16-1.47); MONOCYTES PERCENT MAN 4 % (4-13); NEUTROPHILS ABSOLUTE MAN 9.54 K/mm3 (1.96-9.15); SEG NEUTROPHILS PERCENT MAN 38 % (41-73); TOTAL CELLS COUNTED 100
[2021-12-18 01:53] LABS: International Normalized Ratio 1.19; Prothrombin Time Results 12.4 Sec (9.7-11.5)
== END 2021-12-18 05:09 | disposition other institution (70) ==
LOC: ER 00:32
PROVIDERS: Student in an Organized Health Care Education/Training Program
DX: A41.9 Sepsis, unspecified organism (principal); K63.1 Perforation of intestine (nontraumatic); I74.3 Embolism and thrombosis of arteries of the lower extremities; I74.09 Other arterial embolism and thrombosis of abdominal aorta; E87.2 Acidosis; E87.6 Hypokalemia; N17.9 Acute kidney failure, unspecified; I10 Essential (primary) hypertension; J44.9 Chronic obstructive pulmonary disease, unspecified; G47.33 Obstructive sleep apnea (adult) (pediatric); E78.5 Hyperlipidemia, unspecified; E03.9 Hypothyroidism, unspecified; Z86.711 Personal history of pulmonary embolism; Z79.899 Other long term (current) drug therapy; Z88.6 Allergy status to analgesic agent; Z88.1 Allergy status to other antibiotic agents; Z88.5 Allergy status to narcotic agent; Z88.0 Allergy status to penicillin; Z88.2 Allergy status to sulfonamides; Z88.8 Allergy status to other drugs, medicaments and biological substances
CPT/HCPCS: 36415; 71275; 74018; 75635; 80053; 83605; 85025; 85610; 85730; 86850; 86900; 86901; 93005; 93010; J1644; J2270; J2543; J3370; J7050; J7060; J7120; Q9967

== ENCOUNTER 2022-01-28 09:24 | Inpatient (IN) | payer MEDICARE, OTHER ==
[~2022-01-28] VITALS: Ht 165.1 cm; Wt 61.3 kg
[~2022-01-28 09:24] MED LIST changes: +MELO7.5 PO
[2022-01-28 10:37] LABS: Albumin, Blood 2.1 g/dL (3.4-5.0); Albumin/Globulin Ratio 0.5 (0.8-1.8); Bilirubin, Total 0.2 mg/dL (0.1-1.0); Bun/Creatinine Ratio 27.8 (12.0-20.0); Calcium, Blood 8.2 mg/dL (8.5-10.1); Creatinine, Blood 0.47 mg/dL (0.40-1.00); Globulin, Blood 4.5 g/dL (2.2-4.0); Potassium, Blood 3.8 mmol/L (3.5-5.5); Total Protein, Blood 6.6 g/dL (6.4-8.2)
[2022-01-28 11:19] LABS: BASOPHILS ABSOLUTE AUTO 0.02 K/mm3 (0.00-0.23); BASOPHILS PERCENT AUTO 0 % (0-2); EOSINOPHILS ABSOLUTE AUTO 0.37 K/mm3 (0.00-0.68); EOSINOPHILS PERCENT AUTO 5 % (0-6); Hematocrit 29.3 % (33.0-51.0); Hemoglobin 8.6 g/dL (11.5-16.0); IMMATURE GRAN ABSOLUTE AUTO 0.02 K/mm3 (0.00-0.10); IMMATURE GRAN PERCENT AUTO 0 % (0-1); LYMPHOCYTES ABSOLUTE AUTO 1.29 K/mm3 (0.84-5.20); LYMPHOCYTES PERCENT AUTO 18 % (21-46); MONOCYTES ABSOLUTE AUTO 0.64 K/mm3 (0.16-1.47); MONOCYTES PERCENT AUTO 9 % (4-13); Mean Corpuscular HGB 23.8 pg (26.0-34.0); Mean Corpuscular HGB Conc 29.4 g/dL (31.5-36.5); Mean Corpuscular Volume 81 fL (80-100); Mean Platelet Volume 8.6 fL (9.1-12.4); NEUTROPHILS ABSOLUTE AUTO 4.79 K/mm3 (1.96-9.15); NEUTROPHILS PERCENT AUTO 67 % (41-73); Platelet Count 656 K/mm3 (150-400); RDW Coefficient Variation 16.9 % (11.7-14.2); RDW Standard Deviation 49.4 fL (35.1-46.3); Red Blood Cell Count 3.61 M/mm3 (3.80-5.20); White Blood Cell Count 7.13 K/mm3 (4.00-11.30)
[2022-01-28 13:09] LABS: International Normalized Ratio 1.12; Prothrombin Time Results 11.7 Sec (9.7-11.5)
--- NOTE | 2022-01-28 17:20 | NUR ---
arrival to unit notifed on arrival that patient has a bka to r leg and that she is unable to transfer. on assessment dressing under pad was off. replaced dressing with gauze wrap and dana wrap. julia are cdi, no redness noted on incision. silver padded brace reapplied to r lower leg. dressing to LUQ and g tube in place, midline upper abd dressing changed over removed drain site. pt states surgery on leg was 2 weeks ago, appears oriented at this time. call light in reach and bed alarm is on. pt oriented to unit and call light reach.
[2022-01-28 18:05] LABS: Influenza A, PCR NEGATIVE (NEGATIVE); Influenza B, PCR NEGATIVE (NEGATIVE); Resp Syncytial Virus, PCR NEGATIVE (NEGATIVE); SARS-Cov-2 (COVID-19) PCR, MMC NEGATIVE (NEGATIVE)
--- NOTE | 2022-01-29 03:55 | NUR ---
SHIFT SUMMARY NO ACUTE CHANGES SINCE ARRIVAL. PT PRESENT WITH PEG TUBE IN HER LEFT ABD REGION. HASN'T BEEN USED AT ALL T/O SHIFT. PT IS NPO AFTER MIDNIGHT FOR POSSIBLE PROCEDURE/ TUBE PLACEMENT. PREVIOUS MELACHOT TUBE ON EPIGASTRIC REGION IS NOT PRESENT. PT WAS ADMITTED DUE TO THE ABSENCE OF THIS TUBE. MEPLEX WAS PLACED BY DAY SHIFT NURSE, REMAIN CDI. PT HAS R BKA, BRACE AND IMMOBILIZER WAS PRESENT. PT TOOK IT OUT AT SLEEP. R STUMP COVERED WITH GAUZE AND CITLALLI WRAP REMAIN CDI. IV FLUIDS INFUSING 50MLS/HR. IV ABX ADMINISTERED. BED ALARM ON FOR SAFETY. HX DEMENTIA. CALL LIGHT WITHIN REACH. WILL PROVIDE REPORT TO ONCOMING NURSE.
[2022-01-29] MEDS ORDERED: FURO40 PO (05:54)
[2022-01-29] MEDS ORDERED: OMEPRAZOLE MAGN20 M1 PO (06:02)
[2022-01-29] MEDS ORDERED: CALCIUM 500-VI1 EAC4 PO (06:03)
[2022-01-29] MEDS ORDERED: DRIZALMA SPRINK40 MG PO (06:05)
[2022-01-29] MEDS ORDERED: ELIQUIS5 M2 PO (06:05)
[2022-01-29] MEDS ORDERED: Florastor250 MG PO (06:06)
[2022-01-29] MEDS ORDERED: NEURONTIN600 MG PO (06:08)
[2022-01-29] MEDS ORDERED: Methadone S5 MG/5 ML PO (06:10)
[2022-01-29] MEDS ORDERED: SIME80CH PO (06:11)
[2022-01-29] MEDS ORDERED: Acetaminophen650 M1 PO (06:12)
[2022-01-29] MEDS ORDERED: HYDROMORPHO1 MG/119 (06:14)
[2022-01-29] MEDS ORDERED: BUSP5 PO (06:15)
--- NOTE | 2022-01-29 12:36 | NUR ---
PT RETURNED FROM RADIOLOGY. URACIL DRAIN FROM THORACENTISIS IN PLACE ON BACK. SANGUINOUS DRAINAGE IN TUBE. BULB COMPRESSED.
--- NOTE | 2022-01-29 15:01 | NUR ---
POST PROCEDURE: PT BACK FROM CT GUIDED DRAIN PLACEMENT AT ABOUT 1300. PT IS A/O, VSS. PT DENIES PAIN AT THIS TIME, DENIES SOB, EVEN CHEST RISE AND FALL. DRAIN SITE AT L MID BACK IS WNL. SMALL AMT OF SS DRAINAGE IN TUBING AND URISEL BAG. WILL CTM
--- NOTE | 2022-01-29 15:05 | NUR ---
SPOKE WITH YADI WEBB TO USE PEG TUBE TO GIVE MEDS CRUSHED, MADE PHARMACY AWARE OF THIS ORDER.
--- NOTE | 2022-01-29 15:06 | NUR ---
URESIL DRAIN: THIS RN NOTED THAT URESIL DRAIN STAYING COMPRESSED FOR ONLY A FEW MINUTES AFTER BEING COMPRESSED. WHEN THE ACCORDION IS COMPRESSED IT SLOWLY RELEASES AFTER ABOUT 3 MINUTES. THERE IS SOME SS DRAINAGE IN THE ACCORDION AT 1440 BUT THERE DOES NOT APPEAR TO BE ANY MORE SINCE MY ASSESSMENT POST PROCEDURE. DR. CABRERA IN ROOM AT 1445 AND MADE AWARE OF THIS. WHILE DR. CABRERA AT BEDSIDE PT REPORTED SOB. NO NEW ORDERS, PLAN IS FOR CHEST XRAY TOMORROW. WILL CTM.
[2022-01-29 15:16] LABS: Automated BF RBC Count 0.054 M/mm3 (0-0)
[2022-01-29 15:18] LABS: Body Fluid WBC Count 1600 /mm3 (0-999); RBC Count, Body Fluid 54000 /mm3 (0-0)
[2022-01-29 15:36] LABS: Glucose, Body Fluid 43 mg/dL; Lactate Dehydrogenase, Body Fl 318 U/L; Protein, Body Fluid 3.5 g/dL
[2022-01-29 16:18] LABS: Total Cell Count, Body Fluid 200
[2022-01-29 16:19] LABS: Appearance, Body Fluid Cloudy (Clear); Color, Body Fluid Red (None-Yellow)
--- NOTE | 2022-01-29 18:03 | NUR ---
SUMMARY: NO ACUTE CHANGE TODAY. PT IS A/O X3, FORGETFUL AT TIMES, FLAT AFFECT. URESIL DRAIN SITE IS WNL, PT CONTINUES TO REPORT SOME SOB AND PAIN AT INSERTION SITE. MEDICATED PER EMAR, CONTINIOUS BI OX ORDERED AND NOW IN PLACE. PT DENIES CP, LUNG SOUNDS ARE CLEAR AND DIM AT BASES. NO NEW DRAINAGE NOTED FROM URESIL DRAIN TONIGHT. PEG TUBE USED TONIGHT TO GIVE MEDS, TUBE FLUSHED WELL, FLUSHED WITH WATER 2OML BEFORE AND AFTER MEDS. PT HOB ELEVATED AFTER USING PEG TUBE. DIETARY PUT IN NEW ORDERS FOR CONTINIOUS FEED, PT REQUESTED THAT FEEDINGS START TOMORROW MORNING. PT MOVES SELF WELL IN BED, AND TURNS TO GET ON BEDPAN, HAD SEVERAL VOIDS AND A BM. PROTECTIVE MEPILEX PLACED TO COCCYX, NO SKIN BREAKDOWN NOTED. NO SAFETY CONCERNS AT THIS TIME, BED ALARM SET, WILL REPORT TO MI RN.
--- NOTE | 2022-01-30 04:15 | NUR ---
SHIFT SUMMARY AOX3 FORGETFUL AT TIMES. MEDS CRUSHED GIVEN VIA PEG TUBE, WNL. URECIL DRAIN TO R FLANK/MIDBACK DRAINGING PINK TINGED FLUID. WHEN DRAIN IS COMPRESSED SLIGHT AIR IN BAG, DRAIN WILL BECOME UNCOMPRESSED WITH IN MINUTES. PATIENTS PAIN MANAGED WITH 1 NORCO CRUSHED IN PEG. RESTS COMFORTABLY THROUHGOUT SHIFT. ATTENDS CHANGED AFTER BEDPAN USE X1. DENIES N/V, SOB AND CHEST PAIN. SATS REMAINED ABOVE 94% ON RA. VSS, CALL LIGHT IN REACH. BED ALARM FOR SAFETY.
[2022-01-30 04:55] LABS: BASOPHILS ABSOLUTE AUTO 0.03 K/mm3 (0.00-0.23); BASOPHILS PERCENT AUTO 1 % (0-2); EOSINOPHILS ABSOLUTE AUTO 0.29 K/mm3 (0.00-0.68); EOSINOPHILS PERCENT AUTO 7 % (0-6); Hematocrit 28.5 % (33.0-51.0); Hemoglobin 8.3 g/dL (11.5-16.0); IMMATURE GRAN ABSOLUTE AUTO 0.02 K/mm3 (0.00-0.10); IMMATURE GRAN PERCENT AUTO 1 % (0-1); LYMPHOCYTES ABSOLUTE AUTO 1.03 K/mm3 (0.84-5.20); LYMPHOCYTES PERCENT AUTO 25 % (21-46); MONOCYTES ABSOLUTE AUTO 0.47 K/mm3 (0.16-1.47); MONOCYTES PERCENT AUTO 11 % (4-13); Mean Corpuscular HGB 23.6 pg (26.0-34.0); Mean Corpuscular HGB Conc 29.1 g/dL (31.5-36.5); Mean Corpuscular Volume 81 fL (80-100); Mean Platelet Volume 8.7 fL (9.1-12.4); NEUTROPHILS ABSOLUTE AUTO 2.32 K/mm3 (1.96-9.15); NEUTROPHILS PERCENT AUTO 56 % (41-73); Platelet Count 615 K/mm3 (150-400); RDW Coefficient Variation 16.5 % (11.7-14.2); RDW Standard Deviation 48.4 fL (35.1-46.3); Red Blood Cell Count 3.51 M/mm3 (3.80-5.20); White Blood Cell Count 4.16 K/mm3 (4.00-11.30)
[2022-01-30 05:23] LABS: Albumin, Blood 2.1 g/dL (3.4-5.0); Albumin/Globulin Ratio 0.5 (0.8-1.8); Bilirubin, Total 0.2 mg/dL (0.1-1.0); Bun/Creatinine Ratio 21.2 (12.0-20.0); C-REACTIVE PROTEIN, EXT RANGE 4.01 mg/dL (0.000-0.300); Calcium, Blood 8.2 mg/dL (8.5-10.1); Creatinine, Blood 0.52 mg/dL (0.40-1.00); Globulin, Blood 4.2 g/dL (2.2-4.0); Potassium, Blood 3.7 mmol/L (3.5-5.5); Total Protein, Blood 6.3 g/dL (6.4-8.2)
--- NOTE | 2022-01-30 16:22 | NUR ---
SHIFT SUMMARY PT A&O1-2/CONFUSED, PLEASANT & COOPERATIVE WITH CARE. NPO, PEG TUBE FEEDS STARTED AT 25 MLS/HR W/40 MLS/HR FLUSH; ALL MEDS CRUSHED AND ADMINISTERED THROUGH PEG. URACIL DRAIN R MIDBACK IN PLACE, SMALL AMT RED DRAINAGE. PT ROLLS WELL FOR BEDPAN USE. R BKA ELEVATED, DRESSING CDI. PAIN MANAGED WELL WITH NORCO 5 MG. WILL REPORT TO ONCOMING NOC RN.
--- NOTE | 2022-01-31 05:53 | NUR ---
SHIFT SUMMARY PT HAS RESTED T/O THE NIGHT. SHE HAS BEEN A/O TO PLACE, TIME AND SITUATION AND ANSWERS MY QUESTIONS APPROPRIATELY. URESIL DRAIN IN PLACE WITH NO ACUTE CHANGES. RESPIRATORY STATUS STABLE. KAL FEEDS INFUSED T/O SHIFT, AND PT IS TOLERATING. IVF INFUSING. PT CALLS FOR BATHROOM ASSISTANCE AND ASSISTS STAFF WITH ROLLING IN BED. VITALS ARE STABLE. BED IN LOWEST POSITION, CALL LIGHT WITHIN REACH.
--- NOTE | 2022-01-31 16:04 | NUR ---
SHIFT SUMMARY PT A&O3, CALLS APPROPRIATELY, PLEASANT & COOPERATIVE WITH CARE. NPO, PEG TUBE FEEDS-JEVITY 1.2 35 MLS/HR WITH 40 MLS/HR FLUSH, TOLERATING WELL. URECIL DRAIN REMOVED BY DR CABRERA. REPOSITIONS WELL, BLE ELEVATED. USES BEDPAN, VOIDING WELL, LIQUID BOWEL MOVEMENTS. PAIN MANAGED WELL. R BKA DRESSING CHANGED TODAY, NEW GAUZE AND CITLALLI WRAP APPLIED. WILL REPORT TO ONCOMING NOC RN.
--- NOTE | 2022-02-01 03:07 | NUR ---
AT APPROX 0250 PT HAD CONSISTEN HR OF 135-137 BPM PER PULSE OX, PALPATED PULSE AND IT WAS IRREGULAR. PHONE CALL PLACED TO HOSPITALIST WHO ORDERED TELE AT APPROX [phone]. WILL PLACE ON PT ONCE RECIEVED.
--- NOTE | 2022-02-01 04:56 | NUR ---
SHIFT SUMMARY A/O X3- BEDREST THROUGHOUT THE NIGHT. TUBE FEEDS CONTINUED AT 35ML/HR. LITTLE REPORTS OF PAIN, TREATED W/ PAIN PILLS PER EMAR. VITAL SIGNS STABLE- PLACED ON TELE DUE TO INCREASE IN HR FOR SHORT PERIOD OF TIME. VOIDING WELL, HAVING LOOSE BOWEL MOVEMENTS AND REPORTS PASSING FLATUS. PLEASANT AND COOPERATIVE W/ CARE, WILL CONTINUE TO MONITOR AND REPORT TO ONCOMING RN.
[2022-02-01 05:22] LABS: BASOPHILS ABSOLUTE AUTO 0.03 K/mm3 (0.00-0.23); BASOPHILS PERCENT AUTO 1 % (0-2); EOSINOPHILS ABSOLUTE AUTO 0.43 K/mm3 (0.00-0.68); EOSINOPHILS PERCENT AUTO 9 % (0-6); Hematocrit 29.3 % (33.0-51.0); Hemoglobin 8.6 g/dL (11.5-16.0); IMMATURE GRAN ABSOLUTE AUTO 0.01 K/mm3 (0.00-0.10); IMMATURE GRAN PERCENT AUTO 0 % (0-1); LYMPHOCYTES ABSOLUTE AUTO 1.14 K/mm3 (0.84-5.20); LYMPHOCYTES PERCENT AUTO 23 % (21-46); MONOCYTES ABSOLUTE AUTO 0.49 K/mm3 (0.16-1.47); MONOCYTES PERCENT AUTO 10 % (4-13); Mean Corpuscular HGB 23.2 pg (26.0-34.0); Mean Corpuscular HGB Conc 29.4 g/dL (31.5-36.5); Mean Corpuscular Volume 79 fL (80-100); Mean Platelet Volume 8.7 fL (9.1-12.4); NEUTROPHILS ABSOLUTE AUTO 2.87 K/mm3 (1.96-9.15); NEUTROPHILS PERCENT AUTO 58 % (41-73); Platelet Count 643 K/mm3 (150-400); RDW Coefficient Variation 16.2 % (11.7-14.2); RDW Standard Deviation 46.2 fL (35.1-46.3); White Blood Cell Count 4.97 K/mm3 (4.00-11.30)
[2022-02-01 05:30] LABS: Albumin, Blood 2.1 g/dL (3.4-5.0); Albumin/Globulin Ratio 0.5 (0.8-1.8); Bilirubin, Total 0.3 mg/dL (0.1-1.0); Creatinine, Blood 0.43 mg/dL (0.40-1.00); Potassium, Blood 3.3 mmol/L (3.5-5.5); Total Protein, Blood 6.1 g/dL (6.4-8.2)
--- NOTE | 2022-02-01 16:50 | NUR ---
THIS RN SPOKE WITH PATIENTS BARNEY JUAN W/ PERMISSION FROM PATIENT. GAVE INFORMATION THAT PATIENT WAS SEEING DR. GONZALZE AT [facility], PATIENT HAS REMAINED NPO D/T PERFORATIONS ALONG GI & STOMACH, PER CLAIR. THIS RN CALLED DR SAMS AND UPDATED. DR SAMS GAVE TELEPHONE ORDERS TO KEEP PATIENT NPO AT THIS TIME AND DO A GI SERIES AND GO FROM THERE. NO GI ON UNTIL . ORDERS ENTERED.
--- NOTE | 2022-02-01 19:33 | NUR ---
SHIFT SUMMARY NO ACUTE CHANGES THIS SHIFT. PATIENT REMAINS NPO W/ TUBE FEEDING AT 45 ML/HR CONTINUOUSLY, WITH 40ML/HR FLUSH Q 1HR. PATIENT TOLERATING WELL. DENIES N/V. PAIN MANAGED PER EMAR. CALLS APPROPRIATELY, WILL REPORT TO ONCOMING RN.
--- NOTE | 2022-02-02 04:43 | NUR ---
SHIFT SUMMARY A/O X3-4- FORGETFUL AT TIMES, BEDREST THROUGHOUT THE SHIFT. REMAINED NPO W/ PEG TUBE FEEDINGS RUNNING CONTINUOUSLY. PAIN MANAGED X1 FOR ABDOMINAL/BACK PAIN. VOIDING WELL, HAVING SOME INCONTINENCE. LOOSE BOWEL MOVEMENTS THIS EVENING. TELE IN PLACE, NSR. PLEASANT AND COOPERATIVE W/ CARE. WILL CONTINUE TO MONITOR AND REPORT TO ONCOMING RN.
--- NOTE | 2022-02-02 10:50 | NUR ---
DR SAMS AT BEDSIDE. GAVE THIS RN VERBAL ORDERS TO START OATIENT ON REGULAR DIET WITH SPEECH THERAPIES RECOMMENDATIONS.
--- NOTE | 2022-02-02 16:41 | NUR ---
Pt. is awake in bed and welcomes my visit. pt. is pleasant, but unsettled by delays in getting exploritory surgery accomplished. Listen empathetically with a calming presence. Establish rapport and adress pt. concerns with pastoral dianetic counselor. Issues of charles and belief are considered. Pt. displays evidence of catharsis, and words of encouragement are shared. Prayed with Pt. Pt. verbalized gratitude for the spiritual care visit, and specifically requested this information technology security manager to return.
--- NOTE | 2022-02-02 19:23 | NUR ---
SHIFT SUMMARY NO ACUTE CHANGES THIS SHIFT. MD ADVANCED DIET TO REGULAR WITH PRECAUTIONS RECOMMENDED BY SPEECH THERAPY. PATIENT TOLERATED YOGURT AND HONEY THICK LIQUIDS WELL. PAIN MANAGED PER EMAR T/O SHIFT. PATIENT A&O X4 T/O SHIFT, CALLS APPROPRIATELY. WILL REPORT TO ONCOMING RN.
--- NOTE | 2022-02-03 04:35 | NUR ---
VSS. THE PATIENT HAS SLEPT WELL TONIGHT. THERE WERE NO ACUTE EVENTS. THE PT TOLLERATED MINIMAL PO INTAKE TONIGHT ALONG WITH CONTINUOUS TUBE FEEDINGS. FEEDINGS HAVE RUN AT 50 MLS/HR WITH A 40ML/HR FLUSH WITH H20. PATIENT VOIDING W/O DIFFICULTY, CONTINENT AND INCONTINENT. NO BM'S NOTED TONIGHT, PT REPORTED NOT PASSING FLATTUS TONIGHT. PAIN HAS BEEN CONTROLLED WITH PO NORCO. DRESSING ON THE PATIENTS RBKA IS C/D/I. THE PATIENTS DRESSING AROUND THE PEG SITE REMAINS C/D/I. AWAITNG FURTHER ORDERS TO PLAN DIRECTION OF PATIENT CARE. THE PATIENT IS CURRENTLY SLEEPING, IN NO DISTRESS. CALL LIGHT IN REACH AND BED ALARM ON.
[2022-02-03 09:33] LABS: Hematocrit 30.5 % (33.0-51.0); Hemoglobin 8.8 g/dL (11.5-16.0); Mean Corpuscular HGB 23.3 pg (26.0-34.0); Mean Corpuscular HGB Conc 28.9 g/dL (31.5-36.5); Mean Corpuscular Volume 81 fL (80-100); Mean Platelet Volume 8.9 fL (9.1-12.4); Platelet Count 587 K/mm3 (150-400); RDW Coefficient Variation 16.3 % (11.7-14.2); RDW Standard Deviation 47.8 fL (35.1-46.3); Red Blood Cell Count 3.77 M/mm3 (3.80-5.20); White Blood Cell Count 5.46 K/mm3 (4.00-11.30)
[2022-02-03 10:19] LABS: Albumin, Blood 2.2 g/dL (3.4-5.0); Albumin/Globulin Ratio 0.6 (0.8-1.8); Bilirubin, Total 0.1 mg/dL (0.1-1.0); Calcium, Blood 8.4 mg/dL (8.5-10.1); Creatinine, Blood 0.48 mg/dL (0.40-1.00); Globulin, Blood 3.6 g/dL (2.2-4.0); Potassium, Blood 4.3 mmol/L (3.5-5.5); Total Protein, Blood 5.8 g/dL (6.4-8.2)
--- NOTE | 2022-02-03 16:54 | NUR ---
SUMMARY NO ACUTE CHANGES T/O SHIFT. PT WORKED WITH THERAPY. MEDICATED PER ORDERS FOR PAIN T/O SHIFT. PT HAS C/O OF ABDOMINAL PAIN OFF AND ON. DENIES N/V, DENIES FEELS HUNGRY OR TOO FULL, DENIES FEELING NEED TO HAVE BM. TOLERATING TUBE FEEDINGS AND SMALL AMOUNTS OF PO INTAKE. IV FLUIDS AND TUBE FEEDING INFUSING PER ORDERS. CALL LIGHT IN REACH.
--- NOTE | 2022-02-03 18:04 | NUR ---
DISCUSSED W/DR SAMS PT'S ABDOMINAL PAIN AND NEED FOR STAPLE REMOVAL ON R BKA. DR SAMS PLANNING TO REMOVE KATIE TOMORROW.
--- NOTE | 2022-02-04 07:34 | NUR ---
SUMMARY PT WITH NO ACUTE CHANGES. DAY RN VERB SHE REPORTED PTS ABD PAIN TO DR WITH ROUNDING 02/03.HOWEVER,AGREES TO F/U AGAIN TODAY. ASLO WILL F/U IN REGARDS TO AMNT OF FEEDING AND FLUSHES VS PO INTAKE.
--- NOTE | 2022-02-04 08:56 | NUR ---
therapy in to see pt.
[2022-02-04 09:48] LABS: BASOPHILS ABSOLUTE AUTO 0.06 K/mm3 (0.00-0.23); BASOPHILS PERCENT AUTO 1 % (0-2); EOSINOPHILS ABSOLUTE AUTO 0.51 K/mm3 (0.00-0.68); EOSINOPHILS PERCENT AUTO 8 % (0-6); Hematocrit 31.7 % (33.0-51.0); Hemoglobin 9.2 g/dL (11.5-16.0); IMMATURE GRAN ABSOLUTE AUTO 0.01 K/mm3 (0.00-0.10); IMMATURE GRAN PERCENT AUTO 0 % (0-1); LYMPHOCYTES ABSOLUTE AUTO 1.22 K/mm3 (0.84-5.20); LYMPHOCYTES PERCENT AUTO 19 % (21-46); MONOCYTES ABSOLUTE AUTO 0.51 K/mm3 (0.16-1.47); MONOCYTES PERCENT AUTO 8 % (4-13); Mean Corpuscular HGB 23.8 pg (26.0-34.0); Mean Corpuscular Volume 82 fL (80-100); Mean Platelet Volume 8.5 fL (9.1-12.4); NEUTROPHILS ABSOLUTE AUTO 4.08 K/mm3 (1.96-9.15); NEUTROPHILS PERCENT AUTO 64 % (41-73); Platelet Count 588 K/mm3 (150-400); RDW Coefficient Variation 16.6 % (11.7-14.2); RDW Standard Deviation 49.7 fL (35.1-46.3); Red Blood Cell Count 3.86 M/mm3 (3.80-5.20); White Blood Cell Count 6.39 K/mm3 (4.00-11.30)
--- NOTE | 2022-02-04 09:54 | NUR ---
PT ANXIOUS AND TEARFUL FEELS DISCOURAGED AFTER THERAPY, STATED DID NOT FEEL STABLE WITH STANDING. WANTS TO GET BACK IN BED. ADVISED PT NEEDED TO STAY UPRIGHT FOR AT LEAST 20 MINUTES DUE TO PO INTAKE. CALL LIGHT IN REACH. SL'D PER ORDERS.
[2022-02-04 10:06] LABS: Albumin, Blood 2.4 g/dL (3.4-5.0); Albumin/Globulin Ratio 0.6 (0.8-1.8); Bilirubin, Total 0.2 mg/dL (0.1-1.0); Bun/Creatinine Ratio 34.3 (12.0-20.0); Calcium, Blood 8.6 mg/dL (8.5-10.1); Creatinine, Blood 0.44 mg/dL (0.40-1.00); Globulin, Blood 4.1 g/dL (2.2-4.0); Potassium, Blood 3.7 mmol/L (3.5-5.5); Total Protein, Blood 6.5 g/dL (6.4-8.2)
--- NOTE | 2022-02-04 14:57 | NUR ---
REPORTED PT CONTINUED STOMACH PAIN TO DR SAMS PT ALSO REPORTS PAIN TO RLE. NEW ORDERS OBTAINED FOR NORCO . ADMINISTERED PER ORDERS. PT TOLERATING PO INTAKE. DENIES N/V. ABD SOFT. HAD BM THIS AM, PASSING FLATUS.
--- NOTE | 2022-02-04 16:44 | NUR ---
SUMMARY NO ACUTE CHANGES T/O SHIFT. PT HAD BM AND VOIDING. CONTINUES TO C/O STOMACH PAIN BUT DENIES N/V, FEELING HUNGRY OR TOO FULL, IS PASSING FLATUS AND HAVING BMS. ABDOMEN SOFT TO PALPATION. NOTIFIED DR SAMS. 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 PT TOLERATING YOGURT, APPLESAUCE, HONEY THICK LIQUIDS AND TAKE PILLS ONE AT A TIME IN APPLESAUCE WITHOUT DIFFICULTY. PT FEARFUL OF GETTING UP. THERAPY GOT PT UP TO RECLINER. WHEN THERAPY WENT TO ASSIST PT TO STAND AND PIVOT BACK TO BED, PT FEARFUL AND WENT LIMP, NOT ATTEMPTING TO ASSIST BACK TO BED. PEG TUBE FEEDINGS CHANGED TO NOC ONLY WITH WATER FLUSHES HOURLY AROUND THE CLOCK. REPORT GIVEN AND CARE TURNED OVER TO MOLLY BATES RN.
--- NOTE | 2022-02-04 18:15 | NUR ---
[id number] [facility] CARE OF PATIENT. DR SAMS AT BEDSIDE AND REMOVED KATIE TO RIGHT STUMP AFTER INJECTING WITH LOCAL ANESTHETIC. SCANT BLEEDING WITH STAPLE REMOVAL
--- NOTE | 2022-02-05 07:33 | NUR ---
SUMMARY TOLERATED NIGHT FEEDING. NO ACUTE CHANGES.
[2022-02-05 13:21] LABS: SARS-Cov-2 (COVID-19) PCR, MMC NEGATIVE (NEGATIVE)
--- NOTE | 2022-02-05 17:19 | NUR ---
TRANSFER SUMMARY PT A&OX3, PLEASANT & COOPERATIVE WITH CARE. JYOTI PO-LOW PO INTAKE, MEDS 1/W APPLESAUCE. VOIDING WELL/BEDPAN, ATTENDS ON FOR LEAKAGE/URGENCY. PAIN MANAGED WITH NORCO 10 Q6 PRN. BEDREST/REPOSITIONS SELF; ANXIOUS TO GET OOB. REPORT CALLED TO CARLOS ENRIQUE AT [facility], TRANSPORT ARRANGED FOR 1800.
== END 2022-02-05 17:56 | DRG 186 ==
LOC: ER 09:24 → SURS 16:04
PROVIDERS: Emergency Medicine; Hospitalist; Internal Medicine; Internal Medicine Critical Care Medicine; ADMIT Family Medicine
PROC: 0W9B30Z Drainage of Left Pleural Cavity with Drainage Device, Percutaneous Approach (ICD-10-PCS; principal; 2022-01-29)
DX: J90 Pleural effusion, not elsewhere classified (principal); J18.9 Pneumonia, unspecified organism; J86.9 Pyothorax without fistula; D68.59 Other primary thrombophilia; G89.4 Chronic pain syndrome; F03.90 Unspecified dementia, unspecified severity, without behavioral disturbance, psychotic disturbance, mood disturbance, and anxiety; I10 Essential (primary) hypertension; M81.0 Age-related osteoporosis without current pathological fracture; E78.00 Pure hypercholesterolemia, unspecified; G47.33 Obstructive sleep apnea (adult) (pediatric); E03.9 Hypothyroidism, unspecified; Z20.822 Contact with and (suspected) exposure to COVID-19; R32 Unspecified urinary incontinence; M19.90 Unspecified osteoarthritis, unspecified site; K76.0 Fatty (change of) liver, not elsewhere classified; G25.81 Restless legs syndrome; K58.9 Irritable bowel syndrome, unspecified; D64.9 Anemia, unspecified; K22.2 Esophageal obstruction; I71.2 Thoracic aortic aneurysm, without rupture; F41.8 Other specified anxiety disorders; G60.9 Hereditary and idiopathic neuropathy, unspecified; Z96.653 Presence of artificial knee joint, bilateral; Z96.641 Presence of right artificial hip joint; Z86.2 Personal history of diseases of the blood and blood-forming organs and certain disorders involving the immune mechanism; Z98.84 Bariatric surgery status; Z93.1 Gastrostomy status; Z89.511 Acquired absence of right leg below knee; Z79.52 Long term (current) use of systemic steroids; Z79.891 Long term (current) use of opiate analgesic; Z90.710 Acquired absence of both cervix and uterus; Z90.49 Acquired absence of other specified parts of digestive tract; Z87.19 Personal history of other diseases of the digestive system; Z79.01 Long term (current) use of anticoagulants; Z79.2 Long term (current) use of antibiotics; Z87.81 Personal history of (healed) traumatic fracture; Z88.2 Allergy status to sulfonamides; Z88.8 Allergy status to other drugs, medicaments and biological substances; Z98.890 Other specified postprocedural states; Z88.0 Allergy status to penicillin; Z88.5 Allergy status to narcotic agent; Z79.899 Other long term (current) drug therapy; Z88.6 Allergy status to analgesic agent; Z86.711 Personal history of pulmonary embolism; Z88.1 Allergy status to other antibiotic agents; Z99.81 Dependence on supplemental oxygen
CPT/HCPCS: 0241U; 36415; 49465; 71045; 74018; 74177; 74230; 75989; 80053; 82945; 83615; 83690; 83880; 84145; 84157; 85025; 85610; 86140; 87070; 87075; 87102; 87205; 88108; 88305; 89051; 92526; 92610; 92611; 94640; 94664; 94760; 94762; 97110; 97162; 97166; 97530; 99285-25; A9270; J0456; J0696; J3010; J7050; J7120; Q9963; Q9967; U0004